=== PATIENT | male | born 1970 | race African-American/Black ===

== ENCOUNTER 2018-07-01 15:44 | Emergency (ER) | payer OTHER ==
[~2018-07-01] VITALS: Ht 170.2 cm; Wt 79.4 kg
[2018-07-01] MEDS ORDERED: IPRATRPIUM/ALBUTEROL 0.5/2.5MG 3 ML NEBU. NEB ONE (16:00)
--- NOTE | 2018-07-01 16:02 | PHYS DOC ---
Past Medical History Past Medical History: Asthma, Diabetes-Type II, Hypertension Additional Past Medical Histor: multiple sclerosis, Past Surgical History: Appendectomy Additional Past Surgical Histo: vesicostomy Alcohol Use: Occasionally Drug Use: None Adult General Chief Complaint Chief Complaint: URINE CATHETER PROBLEM HPI HPI Patient is a 47 year old male with history of MS currently wheelchair-bound, asthma, diabetes type 2, hypertension, who presents today for suprapubic catheter replacement. She states his catheter fell out " one hour and some change" . [facility], he states he has had the catheter for a long time due to incontinence from MS. He is also requesting a breathing treatment for his chronic asthma. Review of Systems Review of Systems Constitutional: Denies fever or chills [] Eyes: Denies change in visual acuity, redness, or eye pain [] HENT: Denies nasal congestion or sore throat [] Respiratory: Denies cough or shortness of breath [] Cardiovascular: No additional information not addressed in HPI [] GI: Denies abdominal pain, nausea, vomiting, bloody stools or diarrhea [] : Catheter replacement. Denies dysuria or hematuria [] Musculoskeletal: Denies back pain or joint pain [] Integument: Denies rash or skin lesions [] Neurologic: Denies headache, focal weakness or sensory changes [] All other systems were reviewed and found to be within normal limits, except as documented in this note. Current Medications Current Medications Current Medications Medications (Trade) Dose Ordered Sig/Kami Start Time Stop Time Status Last Admin Dose Admin Acetaminophen/ Hydrocodone Bitart (Lortab 5/325) 2 tab 1X ONCE 07/01/18 17:30 07/01/18 17:31 DC 07/01/18 17:31 2 TAB Albuterol/ Ipratropium (Duoneb) 3 ml 1X ONCE 07/01/18 16:00 07/01/18 16:01 DC 07/01/18 16:13 3 ML Allergies Allergies Allergies Coded Allergies Type Severity Reaction Last Updated Verified erythromycin base Allergy Unknown Shortness of breath 07/01/18 Yes oxycodone Allergy Unknown Hallucinations and paranoid 07/01/18 Yes Physical Exam Physical Exam Constitutional: Well developed, well nourished, no acute distress, non-toxic appearance. [] HENT: Normocephalic, atraumatic, bilateral external ears normal, oropharynx moist, no oral exudates, nose normal. [] Eyes: PERRLA, EOMI, conjunctiva normal, no discharge. [] Neck: Normal range of motion, no tenderness, supple, no stridor. [] Cardiovascular:Heart rate regular rhythm, no murmur [] Lungs & Thorax: Bilateral breath sounds clear to auscultation [] Abdomen: Bowel sounds normal, soft, no tenderness, no masses, no pulsatile masses. [] Male :open area on the suprapubic region where catheter was with redness, no signs of infection. No drainage. Skin: Warm, dry, no erythema, no rash. [] Back: No tenderness, no CVA tenderness. [] Extremities: No tenderness, no cyanosis, no clubbing, ROM intact, no edema. [] Neurologic: Alert and oriented X 3, normal motor function, normal sensory function, no focal deficits noted. [] Psychologic: Affect normal, judgement normal, mood normal. [] Current Patient Data Vital Signs Vital Signs Date Time Temp Pulse Resp B/P (MAP) Pulse Ox O2 Delivery O2 Flow Rate FiO2 07/01/18 17:32 90 18 135/63 (87) 07/01/18 17:31 Room Air 07/01/18 16:14 97 07/01/18 15:51 98.3 98.3 Lab Values Laboratory Tests Test 07/01/18 16:40 Urine Collection Type U cath Urine Color Yellow Urine Clarity Clear Urine pH 6.0 Urine Specific [place] 1.015 Urine Protein Negative mg/dL (NEG-TRACE) Urine Glucose (UA) Negative mg/dL (NEG) Urine Ketones (Stick) Negative mg/dL (NEG) Urine Blood Moderate (NEG) Urine Nitrite Positive (NEG) Urine Bilirubin Negative (NEG) Urine Urobilinogen Dipstick 0.2 mg/dL (0.2 mg/dL) Urine Leukocyte Esterase Large (NEG) Urine RBC 11-20 /HPF (0-2) Urine WBC 20-40 /HPF (0-4) Urine Squamous Epithelial Cells Occ /LPF Urine Bacteria Many /HPF (0-FEW) Urine Mucus Slight /LPF EKG EKG [] Radiology/Procedures Radiology/Procedures [] Course & Med Decision Making Course & Med Decision Making Pertinent Labs and Imaging studies reviewed. (See chart for details) This is a 47-year-old male patient presenting to the ED today for suprapubic catheter replacement, his catheter came out an hour and a few minutes ago. [facility]. He has MS and is wheelchair-bound. RN informs me patient's catheter has been out since this morning. [facility] with no success. Patient is also requesting a breathing treatment for his chronic asthma- breathing treatment was given in the ED. RN had placed a regular Harden catheter due to miscommunication. I successfully placed a Coude suprapubic catheter. At this point it is draining well. Urine positive for UTI. Discharged on Cipro. Follow-up with [facility] doctor at the [facility]. Dragon Disclaimer Dragon Disclaimer This electronic medical record was generated, in whole or in part, using a voice recognition dictation system. Departure Departure Impression: Primary Impression: Encounter for Harden catheter replacement Additional Impressions: Asthma Urinary tract infection Disposition: 01 HOME, SELF-CARE Condition: STABLE Referrals: NON,STAFF (PCP) Follow-up with the primary care doctor in 1-2 weeks Patient Instructions: Harden Catheter Care, Adult, Urinary Tract Infection Additional Instructions: We replaced your catheter in the emergency room. Please follow-up with your own doctor in the next 7 days. You also have urinary tract infection, complete your prescribed antibiotics. Scripts Ciprofloxacin Hcl (CIPRO) 500 Mg Tablet 1 TAB PO BID, #14 TAB Prov: MYCHAL GARCIA APRN 07/01/18 Problem Qualifiers Additional Impressions: Asthma Asthma severity: mild Asthma persistence: intermittent Asthma complication type: unspecified Qualified Codes: J45.20 - Mild intermittent asthma, uncomplicated Urinary tract infection Urinary tract infection type: catheter-associated UTI Indwelling urinary catheter type: indwelling urethral catheter Encounter type: initial encounter Qualified Codes: T83.511A - Infection and inflammatory reaction due to indwelling urethral catheter, initial encounter; N39.0 - Urinary tract infection, site not specified MYCHAL GARCIA APRN Jul 01, 2018 16:02
[2018-07-01 16:46] LABS: BILIRUBIN,URINE NEGATIVE (NEG); CLARITY,URINE CLEAR; COLOR,URINE YELLOW; NITRITE,URINE POSITIVE (NEG); PROTEIN,URINE NEGATIVE (NEG-TRACE); UROBILINOGEN,URINE 0.2 mg/dL (0.2 mg/dL)
[2018-07-01 16:55] LABS: BACTERIA,URINE MANY /HPF (0-FEW); SQUAMOUS EPITHELIAL CELL,UR OCC /LPF; WBC,URINE 20-40 /HPF (0-4)
[2018-07-01] MEDS ORDERED: HYDROcodone/APAP 5/325MG 1 TAB TABLET PO ONE (17:30)
[2018-07-01] MEDS ORDERED: CIPR500T94 PO (17:44)
[2018-07-01 18:18] VITALS: BP 138/62
== END 2018-07-01 19:53 | disposition home or self-care (01) ==
LOC: ER 15:44
DX: Z46.6 Encounter for fitting and adjustment of urinary device (principal); T83.511A Infection and inflammatory reaction due to indwelling urethral catheter, initial encounter; N39.0 Urinary tract infection, site not specified; J45.909 Unspecified asthma, uncomplicated; E11.9 Type 2 diabetes mellitus without complications; I10 Essential (primary) hypertension; Z90.49 Acquired absence of other specified parts of digestive tract; Z88.1 Allergy status to other antibiotic agents; Z88.5 Allergy status to narcotic agent
CPT/HCPCS: 51705; 81001; 87086; 94640; 99284; J7620

== ENCOUNTER 2019-01-24 15:12 | Inpatient (IN) | payer MEDICAID, OTHER ==
[~2019-01-24] VITALS: Ht 167.6 cm; Wt 74.8 kg
[~2019-01-24 15:12] MED LIST: CIPR500T94 PO
--- NOTE | 2019-01-24 16:11 | PHYS DOC ---
Past Medical History Past Medical History: Asthma, Diabetes-Type II, Hypertension Additional Past Medical Histor: multiple sclerosis, Past Surgical History: Appendectomy Additional Past Surgical Histo: vesicostomy Alcohol Use: Occasionally Drug Use: None Adult General Chief Complaint Chief Complaint: URINARY RETENTION [facility] HPI Patient is a 48 year old [male] who presents with [urinary leakage around his catheter. [facility], history of MS, has limited physical ability. Patient has had a suprapubic catheter placed on 01/07/19, has had some urinary leakage around it since it has been in. States he is having some tenderness around it and some lower abdominal discomfort ] Review of Systems Review of Systems Constitutional: Denies fever or chills [] Eyes: Denies change in visual acuity, redness, or eye pain [] HENT: Denies nasal congestion or sore throat [] Respiratory: Denies cough or shortness of breath [] Cardiovascular: No additional information not addressed in HPI [] GI: Reports some abdominal pain, denies nausea, vomiting, bloody stools or diarrhea [] : Reports urinary retention, urinary leakage around his catheter site. [] Musculoskeletal: Denies back pain or joint pain [] Integument: Denies rash or skin lesions [] Neurologic: Denies headache, focal weakness or sensory changes [] Endocrine: Denies polyuria or polydipsia [] All other systems were reviewed and found to be within normal limits, except as documented in this note. Current Medications Current Medications Allergies Allergies Allergies Coded Allergies Type Severity Reaction Last Updated Verified erythromycin base Allergy Severe Shortness of breath 07/08/18 Yes I S O L A T I O N *CONTACT* Allergy Unknown 07/08/18 Yes oxycodone Adverse Reaction Intermediate Hallucinations and paranoid 07/08/18 Yes Physical Exam Physical Exam Constitutional: Well developed, well nourished, no acute distress, non-toxic appearance. [] HENT: Normocephalic, atraumatic, bilateral external ears normal, oropharynx moist, no oral exudates, nose normal. [] Eyes: PERRLA, EOMI, conjunctiva normal, no discharge. [] Neck: Normal range of motion, no tenderness, supple, no stridor. [] Cardiovascular:Heart rate regular rhythm, no murmur [] Lungs & Thorax: Bilateral breath sounds clear to auscultation [] Abdomen: Bowel sounds normal, soft, minimal tenderness no masses, no pulsatile masses. Suprapubic catheter noted, appears urinary leakage around catheter site, some purulent discharge noted around catheter site as well.[] Skin: Warm, dry, no erythema, no rash. [] Back: No tenderness, no CVA tenderness. [] Extremities: No tenderness, no cyanosis, no clubbing, ROM intact, no edema. [] Neurologic: Alert and oriented X 3, normal motor function, normal sensory function, no focal deficits noted. [] Psychologic: Affect normal, judgement normal, mood normal. [] Current Patient Data Vital Signs Vital Signs Date Time Temp Pulse Resp B/P (MAP) Pulse Ox O2 Delivery O2 Flow Rate FiO2 01/24/19 17:30 91 16 100 01/24/19 15:15 98.2 133/71 (91) Room Air 98.2 Lab Values Laboratory Tests Test 01/24/19 16:00 01/24/19 17:15 White Blood Count 6.1 x10^3/uL (4.0-11.0) Red Blood Count 4.20 x10^6/uL (4.30-5.70) L Hemoglobin 13.1 g/dL (13.0-17.5) Hematocrit 38.4 % (39.0-53.0) L Mean Corpuscular Volume 91 fL (79-100) Mean Corpuscular Hemoglobin 31 pg (25-35) Mean Corpuscular Hemoglobin Concent 34 g/dL (31-37) Red Cell Distribution Width 18.9 % (11.5-14.5) H Platelet Count 350 x10^3/uL (140-400) Neutrophils (%) (Auto) 35 % (31-73) Lymphocytes (%) (Auto) 38 % (24-48) Monocytes (%) (Auto) 11 % (0-9) H Eosinophils (%) (Auto) 15 % (0-3) H Basophils (%) (Auto) 2 % (0-3) Neutrophils # (Auto) 2.1 x10^3/uL (1.8-7.7) Lymphocytes # (Auto) 2.3 x10^3/uL (1.0-4.8) Monocytes # (Auto) 0.7 x10^3/uL (0.0-1.1) Eosinophils # (Auto) 0.9 x10^3/uL (0.0-0.7) H Basophils # (Auto) 0.1 x10^3/uL (0.0-0.2) Lactic Acid Level 2.5 mmol/L (0.4-2.0) H Sodium Level 141 mmol/L (136-145) Potassium Level 4.2 mmol/L (3.5-5.1) Chloride Level 102 mmol/L (98-107) Carbon Dioxide Level 29 mmol/L (21-32) Anion Gap 10 (6-14) Blood Urea Nitrogen 11 mg/dL (8-26) Creatinine 0.8 mg/dL (0.7-1.3) Estimated GFR (Cockcroft-Gault) 125.4 BUN/Creatinine Ratio 14 (6-20) Glucose Level 81 mg/dL (70-99) Calcium Level 9.6 mg/dL (8.5-10.1) Total Bilirubin 0.2 mg/dL (0.2-1.0) Aspartate Amino Transferase (AST) 9 U/L (15-37) L Alanine Aminotransferase (ALT) 11 U/L (16-63) L Alkaline Phosphatase 119 U/L (46-116) H Total Protein 7.8 g/dL (6.4-8.2) Albumin 3.4 g/dL (3.4-5.0) Albumin/Globulin Ratio 0.8 (1.0-1.7) L Laboratory Tests 01/24/19 16:00 Laboratory Tests 01/24/19 17:15 EKG EKG [] Radiology/Procedures Radiology/Procedures [] Course & Med Decision Making Course & Med Decision Making Pertinent Labs and Imaging studies reviewed. (See chart for details) [Discussed lab findings with patient, with recommendation for admission patient in agreement. @[id number] Henry, agrees to accept patient for admission. Dragon Disclaimer Dragon Disclaimer This electronic medical record was generated, in whole or in part, using a voice recognition dictation system. Departure Departure Impression: Primary Impression: Lactic acidosis Additional Impression: Urinary catheter complication Disposition: ADMITTED INPATIENT Admitting Physician: CHRISTIANA Condition: STABLE Referrals: DARYA HOU MD (PCP) Problem Qualifiers Additional Impression: Urinary catheter complication Encounter type: initial encounter Qualified Codes: T83.9XXA - Unspecified complication of genitourinary prosthetic device, implant and graft, initial encounter DARLYN CEBALLOS APRN Jan 24, 2019 16:11
[2019-01-24 16:13] LABS: BASO # 0.1 x10^3/uL (0.0-0.2); BASO % 2 % (0-3); EOS # 0.9 x10^3/uL (0.0-0.7); EOS % 15 % (0-3); HEMATOCRIT 38.4 % (39.0-53.0); HEMOGLOBIN 13.1 g/dL (13.0-17.5); LYMPH # 2.3 x10^3/uL (1.0-4.8); LYMPH % 38 % (24-48); MEAN CORPUSCULAR HEMOGLOBIN 31 pg (25-35); MEAN CORPUSCULAR HGB CONC 34 g/dL (31-37); MEAN CORPUSCULAR VOLUME 91 fL (79-100); MONO # 0.7 x10^3/uL (0.0-1.1); MONO % 11 % (0-9); NEUT # 2.1 x10^3/uL (1.8-7.7); NEUT % 35 % (31-73); PLATELET COUNT 350 x10^3/uL (140-400); RED CELL DISTRIBUTION WIDTH 18.9 % (11.5-14.5); WHITE BLOOD COUNT 6.1 x10^3/uL (4.0-11.0)
[2019-01-24 17:39] LABS: CALCIUM 9.6 mg/dL (8.5-10.1); CREATININE 0.8 mg/dL (0.7-1.3); GFR 125.4; POTASSIUM 4.2 mmol/L (3.5-5.1)
[2019-01-24 17:43] LABS: ALBUMIN 3.4 g/dL (3.4-5.0); ALBUMIN/GLOBULIN RATIO 0.8 (1.0-1.7); TOTAL BILIRUBIN 0.2 mg/dL (0.2-1.0); TOTAL PROTEIN 7.8 g/dL (6.4-8.2)
[2019-01-24] MEDS ORDERED: ONDANSETRON PF 4 MG/2 ML VIAL. IV PRN (17:45)
[2019-01-24] MEDS ORDERED: IV NORMAL SALINE 1000ML BAG 1,000 ML IV ONE (18:00)
[2019-01-24 19:15] VITALS: BP 130/67
--- NOTE | 2019-01-24 19:15 | NUR ---
ADMISSION NOTE: Patient arrived to room 567 via ED gurney, accompanied by mother and ED staff. Patient was transferred to bed. Bed low, locked, call light within reach. Patient's clothes were removed and hospital gown placed. Patient complains of hunger at this time. Offered unit snacks, patient declined. Patient's mother is to bring him food from outside of the hospital. Provided process on restarting home medications. Patient has no questions at this time. Will continue to monitor.
[2019-01-24] MEDS ORDERED: AMLO10TA4 PO (20:44)
[2019-01-24] MEDS ORDERED: CEFD300C PO (20:44)
[2019-01-24] MEDS ORDERED: DIAZ5TAB4 PO (20:44)
[2019-01-24] MEDS ORDERED: HYDR-3135 PO (20:44)
[2019-01-24] MEDS ORDERED: GABA600T7 PO (20:44)
[2019-01-24] MEDS ORDERED: DICL100G18 TP (20:44)
[2019-01-24] MEDS ORDERED: MODA100T2 PO (20:44)
[2019-01-24] MEDS ORDERED: BACL20TA PO (20:44)
[2019-01-24] MEDS ORDERED: PROP50TA17 PO (20:44)
[2019-01-24] MEDS ORDERED: LISI-334 PO (20:44)
[2019-01-24] MEDS ORDERED: TRAM50TA PO (20:44)
[2019-01-24] MEDS ORDERED: METF10007 PO (20:44)
[2019-01-24] MEDS ORDERED: CHLO15MO2 PO (20:44)
[2019-01-24] MEDS ORDERED: ACET500T68 PO (20:44)
[2019-01-24] MEDS ORDERED: DULO60CA6 PO (20:44)
[2019-01-24] MEDS ORDERED: OXYC1TAB22 PO (20:44)
[2019-01-24] MEDS ORDERED: PHEN37.5 PO (20:44)
[2019-01-24] MEDS ORDERED: HYOS0.1265 SL (20:44)
[2019-01-24] MEDS ORDERED: ONDA4TAB11 PO (20:44)
[2019-01-24] MEDS ORDERED: ASCO500T3 PO (20:44)
[2019-01-24] MEDS ORDERED: CHOL10003 PO (20:44)
[2019-01-24] MEDS ORDERED: ASPI-630 PO (20:44)
[2019-01-24] MEDS ORDERED: INSU100V8 SQ (20:44)
[2019-01-24] MEDS ORDERED: ALBU2.5V8 INH (20:44)
[2019-01-24] MEDS ORDERED: HYOS0.1264 PO (20:44)
[2019-01-24] MEDS ORDERED: [UNRECOGNIZED DRUG - OTHER] INT CAT (20:44)
[2019-01-24] MEDS ORDERED: CLOP75TA PO (20:44)
[2019-01-24] MEDS ORDERED: DIAZ5TAB PO (20:44)
[2019-01-24] MEDS ORDERED: TIZA4TAB2 PO (20:44)
[2019-01-24] MEDS ORDERED: DIME240C PO (20:44)
[2019-01-24] MEDS ORDERED: METO50TA6 PO (20:44)
[2019-01-24] MEDS ORDERED: ACET325T9 PO (20:44)
[2019-01-24] MEDS ORDERED: MAGN2400 PO (20:44)
[2019-01-24] MEDS ORDERED: MIRA50TA PO (20:44)
[2019-01-24] MEDS ORDERED: METH1TAB20 PO (20:44)
[2019-01-24] MEDS ORDERED: traMADol 50 MG TABLET PO PRN (22:00)
[2019-01-24] MEDS ORDERED: IV DEXTROSE 5% 250 ML BAG. IV PRN (22:00)
[2019-01-24] MEDS ORDERED: ALBUTEROL SULFATE 2.5 MG/3 ML NEBU. INH PRN (22:00)
[2019-01-24] MEDS ORDERED: ACETAMINOPHEN 325 MG TABLET. PO PRN (22:00)
[2019-01-24] MEDS ORDERED: diazePAM 5 MG TABLET PO PRN (22:00)
[2019-01-24] MEDS ORDERED: HYDROcodone/APAP 10/325 1 TAB TABLET PO PRN (22:00)
[2019-01-24] MEDS ORDERED: DEXTROSE 50% 25 GM / 50ML DISP.SYRIN. IV PRN (22:00)
--- NOTE | 2019-01-24 22:00 | NUR ---
Patient's mother (Jennifer) expresses that patient and his (listed in the computer, Serena) are and that she (Jennifer) has DPOA paperwork for her son. Requested that patient's mother bring a copy with her when she comes back in the morning, so we can have it on file in the patient's chart. Patient's mother verbalizes understanding.
[2019-01-24 22:55] VITALS: BP 133/71
[2019-01-24] MEDS: tiZANidine 4 MG TABLET. PO SCH (22:58)
[2019-01-24] MEDS: METOPROLOL TART IMMED RELEASE 50 MG TABLET. PO SCH (22:59)
[2019-01-24] MEDS: CHLORHEXIDINE 0.12% 15 ML MOUTHWASH. SWSP SCH (23:00)
[2019-01-24] MEDS: DICLOFENAC SODIUM 1% TOPICAL GEL 100GM TUBE. TP SCH (23:00)
[2019-01-24] MEDS: INSULIN GLARGINE SYRINGE. SQ SCH (23:04)
[2019-01-25 03:00] VITALS: BP 149/78
[2019-01-25 07:00] VITALS: BP 142/74
--- NOTE | 2019-01-25 07:25 | NUR ---
Provided patient with education on importance of turning Q2H. Patient states he is not on special bed at facility, and they don't turn him every two hours. Educated patient on requesting/reminding to turn. Will pass along to day RN.
[2019-01-25] MEDS: INSULIN LISPRO 300 UNITS/3 ML VIAL. SQ SCH ×4 (07:30→21:00)
[2019-01-25] MEDS ORDERED: oxyCODONE/APAP 10/325 1 TAB TABLET PO PRN (08:30)
--- NOTE | 2019-01-25 08:30 | PDOC1 ---
History and Physical Date of Admission Date of Admission DATE: 01/25/19 TIME: :27 Identification/Chief Complaint Chief Complaint sp cath leaking Source Source: Patient History of Present Illness History of Present Illness Mr. Morocho, is a 48 year old admit with UTI, and leaking around his new suprapubic catheter. [facility], history of MS, has limited physical ability. Patient has had a suprapubic catheter placed on 01/07/19, has had some urinary leakage around it since it has been in. States he is having some tenderness around it and some lower abdominal discomfort He was healthy with asthma and HTN 5 years ago, then MS diagnosis, disabled for > 1 year, has been in a [facility]p, unable to walk, cannot use right arm, 1 year Past Medical History Cardiovascular: HTN Pulmonary: Asthma CENTRAL NERVOUS SYSTEM: Other (multiple sclerosis, severe, bedbound) GI: No pertinent hx Past Surgical History Past Surgical History: Other Family History Family History: No Significant Social History Smoke: No ALCOHOL: occassional Current Problem List Problem List Problems Medical Problems: (1) Lactic acidosis Status: Acute (2) Urinary catheter complication Status: Acute Current Medications Current Medications Current Medications Sodium Chloride 1,000 ml @ 1,000 mls/hr 1X ONCE IV Last administered on 01/24/19at 17:54; Start 01/24/19 at 18:00; Stop 01/24/19 at 18:59; Status DC Ondansetron HCl (Zofran) 4 mg PRN Q8HRS PRN IV NAUSEA/VOMITING; Start 01/24/19 at 17:45; Stop 01/25/19 at 17:44 Acetaminophen (Tylenol) 650 mg PRN Q4HRS PRN PO MILD PAIN / TEMP; Start 01/24/19 at 22:00 Albuterol Sulfate (Ventolin Neb Soln) 2.5 mg PRN Q4HRS PRN INH SHORTNESS OF BREATH Last administered on 01/25/19at 05:16; Start 01/24/19 at 22:00 Amlodipine Besylate (Norvasc) 10 mg DAILY PO ; Start 01/25/19 at 09:00 Ascorbic Acid (Vitamin C) 500 mg DAILY PO ; Start 01/25/19 at 09:00 Aspirin (Children'S Aspirin) 81 mg DAILYWBKFT PO ; Start 01/25/19 at 08:00 Chlorhexidine Gluconate (Peridex) 15 ml BID SWSP Last administered on 01/24/19at 23:11; Start 01/24/19 at 22:30 Vitamin D (Vitamin D3) 2,000 unit DAILY PO ; Start 01/25/19 at 09:00 Clopidogrel Bisulfate (Plavix) 75 mg DAILY PO ; Start 01/25/19 at 09:00 Diazepam (Valium) 5 mg PRN Q6HRS PRN PO ANXIETY / AGITATION Last administered on 01/24/19at 23:11; Start 01/24/19 at 22:00 Diclofenac Sodium (Voltaren) 2 sharita QID TP Last administered on 01/24/19at 23:11; Start 01/24/19 at 22:30 Acetaminophen/ Hydrocodone Bitart (Lortab 10/325) 1 tab PRN Q12HR PRN PO PAIN; Start 01/24/19 at 22:00 Insulin Glargine (Lantus Syringe) 8 unit QHS SQ Last administered on 01/24/19at 23:11; Start 01/24/19 at 22:30 Lisinopril (Prinivil) 20 mg DAILY PO ; Start 01/25/19 at 09:00 Metoprolol Tartrate (Lopressor) 50 mg BID PO Last administered on 01/24/19at 23:11; Start 01/24/19 at 22:30 Propylthiouracil (Ptu) 50 mg TID PO ; Start 01/25/19 at 09:00 Tizanidine HCl (Zanaflex) 4 mg TID PO Last administered on 01/24/19at 23:11; Start 01/24/19 at 22:30 Tramadol HCl (Ultram) 50 mg PRN Q6HRS PRN PO PAIN Last administered on 01/24/19at 23:11; Start 01/24/19 at 22:00 Insulin Human Lispro (HumaLOG) 0-5 UNITS TIDACHC SQ ; Start 01/25/19 at 07:30 Dextrose (Dextrose 50%-Water Syringe) 12.5 gm PRN Q15MIN PRN IV SEE COMMENTS; Start 01/24/19 at 22:00 Dextrose 250 ml PRN Q15MIN PRN IV SEE COMMENTS; Start 01/24/19 at 22:00 Active Scripts Active Reported Ondansetron Hcl 4 Mg Tablet 1 Tab PO PRN Q6HRS Tizanidine Hcl 4 Mg Tablet 1 Tab PO TID Vitamin D3 (Cholecalciferol (Vitamin D3)) 1,000 Unit Tablet 2 Tab PO DAILY Valium (Diazepam) 5 Mg Tablet 5 Mg PO PRN Q6HRS PRN Tramadol Hcl 50 Mg Tablet 50 Mg PO PRN Q6HRS PRN Tecfidera (Dimethyl Fumarate) 240 Mg Capsule.dr 240 Mg PO BID Propylthiouracil 50 Mg Tablet 50 Mg PO TID Proair Hfa Inhaler (Albuterol Sulfate) 8.5 Gm Hfa.aer.ad 2 Puff INH PRN Q4HRS PRN Clopidogrel (Clopidogrel Bisulfate) 75 Mg Tablet 1 Tab PO DAILY Phentermine Hcl 37.5 Mg Tablet 1 Tab PO DAILY Peridex (Chlorhexidine Gluconate) 15 Ml Mouthwash 15 Ml PO BID Percocet 10-325 Mg Tablet (Oxycodone/Acetaminophen) 1 Each Tablet 1 Tab PO PRN Q8HRS PRN Norvasc (Amlodipine Besylate) 10 Mg Tablet 10 Mg PO DAILY Gatzke 10-325 Tablet (Acetaminophen/Hydrocodone Bitart) 1 Each Tablet 1 Tab PO PRN Q12HR PRN [Neomycin-PolymB ] 180 Ml INT CAT DAILY Myrbetriq (Mirabegron) 50 Mg Tab.er.24h 50 Mg PO DAILY Modafinil 100 Mg Tablet 100 Mg PO QHS Milk Of Magnesia (Magnesium Hydroxide) 2,400 Mg/10 Ml Oral.susp 2,400 Mg PO PRN DAILY PRN Methenamine Hippurate 1 Gm Tablet 1 Gm PO BID Metformin Hcl 1,000 Mg Tablet 1,000 Mg PO BIDWMEALS Metoprolol Tartrate 50 Mg Tablet 1 Tab PO BID Lisinopril 20 Mg Tablet 1 Tab PO DAILY Lantus (Insulin Glargine,Hum.rec.anlog) 100 Unit/1 Ml Vial 8 Unit SQ QHS Levsin-Sl (Hyoscyamine Sulfate) 0.125 Mg Tab.subl 0.125 Mg SL PRN Q4HRS PRN Levsin (Hyoscyamine Sulfate) 0.125 Mg Tablet 1 Tab PO BID Gabapentin 600 Mg Tablet 600 Mg PO TID Voltaren (Diclofenac Sodium) 100 Gm Gel..gram. 2 Gm TP QID Diazepam 5 Mg Tablet 5 Mg PO QID Cymbalta (Duloxetine Hcl) 60 Mg Capsule.dr 1 Cap PO DAILY Cefdinir 300 Mg Capsule 1 Cap PO BID 7 Days Baclofen 20 Mg Tablet 20 Mg PO QID Aspirin 81 Mg Tab.chew 1 Tab PO DAILY Ascorbic Acid 500 Mg Tablet 500 Mg PO DAILY Acetaminophen 500 Mg Tablet 1 Tab PO TID Tylenol (Acetaminophen) 325 Mg Tablet 650 Mg PO PRN Q4HRS PRN Allergies Allergies: Coded Allergies: erythromycin base (Verified Allergy, Severe, Shortness of breath, 07/08/18) I S O L A T I O N *CONTACT* (Verified Allergy, Unknown, 07/08/18) (R) PSA oxycodone (Verified Adverse Reaction, Intermediate, Hallucinations and paranoid, 07/08/18) ROS General: YES: Fatigue, Malaise; No: Chills, Night Sweats, Appetite, Other PSYCHOLOGICAL ROS: YES: Sleep disturbances; No: Anxiety, Behavioral Disorder, Concentration difficultie, Decreased libido, Depression, Disorientation, Hallucinations, Hostility, Irritablity, Memory difficulties, Mood Swings, Obsessive thoughts, Other Eyes: No Blurry vision, No Decreased vision, No Double vision, No Dry eyes, No Excessive tearing, No Eye Pain, No Itchy Eyes, No Loss of vision, No Photopho tianna, No Scotomata, No Uses contacts, No Uses glasses, No Other HEENT: YES: Heacaches Genitourinary: No Dysuria, No Frequency, No Incontinence, No Hematuria, No Retention, No Discharge, No Urgency, No Pain, No Flank Pain, No Other, No , No , No , No , No , No , No Musculoskeletal: Yes Gait Disturbance, Yes Muscular Weakness, Yes Pain In:; No Joint Pain, No Joint Stiffness, No Joint Swelling, No Muscle Pain Neurological: Yes Bowel/Bladder ControlChng, Yes Gait Disturbance, Yes Impaired Coord/balance, Yes Numbness/Tingling, Yes Weakness; No Behavorial Changes, No Confusion, No Dizziness, No Headaches, No Memory Loss, No Seizures, No Speech Problems, No Tremors, No Visual Changes, No Other Skin: No Dry Skin, No Eczema, No Hair Changes, No Lumps, No Mole Changes, No Mottling, No Nail Changes, No Pruritus, No Rash, No Skin Lesion Changes, No Other, No Acne Physical Exam General: Alert, Cooperative, mild distress HEENT: ANGELES, EOMI, Mucous membr. moist/pink Lungs: Clear to auscultation, Normal air movement Heart: S1S2 Abdomen: Normal bowel sounds, Soft Rectal Exam: not examined Extremities: No clubbing, No cyanosis, No edema, Normal pulses Skin: No rashes, No breakdown, No significant lesion Neuro: Normal speech, Other (flaccid right, cannot move right arm) Psych/Mental Status: Mood NL (a little flat affect) Vitals Vitals Vital Signs Date Time Temp Pulse Resp B/P (MAP) Pulse Ox O2 Delivery O2 Flow Rate FiO2 01/25/19 07:00 98.3 87 16 142/74 (96) 100 Room Air 98.3 Labs Labs Laboratory Tests Test 01/24/19 16:00 01/24/19 17:15 01/24/19 19:45 01/24/19 22:30 White Blood Count 6.1 x10^3/uL (4.0-11.0) Red Blood Count 4.20 x10^6/uL (4.30-5.70) Hemoglobin 13.1 g/dL (13.0-17.5) Hematocrit 38.4 % (39.0-53.0) Mean Corpuscular Volume 91 fL (79-100) Mean Corpuscular Hemoglobin 31 pg (25-35) Mean Corpuscular Hemoglobin Concent 34 g/dL (31-37) Red Cell Distribution Width 18.9 % (11.5-14.5) Platelet Count 350 x10^3/uL (140-400) Neutrophils (%) (Auto) 35 % (31-73) Lymphocytes (%) (Auto) 38 % (24-48) Monocytes (%) (Auto) 11 % (0-9) Eosinophils (%) (Auto) 15 % (0-3) Basophils (%) (Auto) 2 % (0-3) Neutrophils # (Auto) 2.1 x10^3/uL (1.8-7.7) Lymphocytes # (Auto) 2.3 x10^3/uL (1.0-4.8) Monocytes # (Auto) 0.7 x10^3/uL (0.0-1.1) Eosinophils # (Auto) 0.9 x10^3/uL (0.0-0.7) Basophils # (Auto) 0.1 x10^3/uL (0.0-0.2) Lactic Acid Level 2.5 mmol/L (0.4-2.0) 1.8 mmol/L (0.4-2.0) Sodium Level 141 mmol/L (136-145) Potassium Level 4.2 mmol/L (3.5-5.1) Chloride Level 102 mmol/L (98-107) Carbon Dioxide Level 29 mmol/L (21-32) Anion Gap 10 (6-14) Blood Urea Nitrogen 11 mg/dL (8-26) Creatinine 0.8 mg/dL (0.7-1.3) Estimated GFR (Cockcroft-Gault) 125.4 BUN/Creatinine Ratio 14 (6-20) Glucose Level 81 mg/dL (70-99) Calcium Level 9.6 mg/dL (8.5-10.1) Total Bilirubin 0.2 mg/dL (0.2-1.0) Aspartate Amino Transf (AST/SGOT) 9 U/L (15-37) Alanine Aminotransferase (ALT/SGPT) 11 U/L (16-63) Alkaline Phosphatase 119 U/L (46-116) Total Protein 7.8 g/dL (6.4-8.2) Albumin 3.4 g/dL (3.4-5.0) Albumin/Globulin Ratio 0.8 (1.0-1.7) Glucose (Fingerstick) 137 mg/dL (70-99) Test 01/25/19 07:40 Glucose (Fingerstick) 134 mg/dL (70-99) Laboratory Tests Test 01/24/19 16:00 01/24/19 17:15 01/24/19 19:45 01/24/19 22:30 White Blood Count 6.1 x10^3/uL (4.0-11.0) Red Blood Count 4.20 x10^6/uL (4.30-5.70) Hemoglobin 13.1 g/dL (13.0-17.5) Hematocrit 38.4 % (39.0-53.0) Mean Corpuscular Volume 91 fL (79-100) Mean Corpuscular Hemoglobin 31 pg (25-35) Mean Corpuscular Hemoglobin Concent 34 g/dL (31-37) Red Cell Distribution Width 18.9 % (11.5-14.5) Platelet Count 350 x10^3/uL (140-400) Neutrophils (%) (Auto) 35 % (31-73) Lymphocytes (%) (Auto) 38 % (24-48) Monocytes (%) (Auto) 11 % (0-9) Eosinophils (%) (Auto) 15 % (0-3) Basophils (%) (Auto) 2 % (0-3) Neutrophils # (Auto) 2.1 x10^3/uL (1.8-7.7) Lymphocytes # (Auto) 2.3 x10^3/uL (1.0-4.8) Monocytes # (Auto) 0.7 x10^3/uL (0.0-1.1) Eosinophils # (Auto) 0.9 x10^3/uL (0.0-0.7) Basophils # (Auto) 0.1 x10^3/uL (0.0-0.2) Lactic Acid Level 2.5 mmol/L (0.4-2.0) 1.8 mmol/L (0.4-2.0) Sodium Level 141 mmol/L (136-145) Potassium Level 4.2 mmol/L (3.5-5.1) Chloride Level 102 mmol/L (98-107) Carbon Dioxide Level 29 mmol/L (21-32) Anion Gap 10 (6-14) Blood Urea Nitrogen 11 mg/dL (8-26) Creatinine 0.8 mg/dL (0.7-1.3) Estimated GFR (Cockcroft-Gault) 125.4 BUN/Creatinine Ratio 14 (6-20) Glucose Level 81 mg/dL (70-99) Calcium Level 9.6 mg/dL (8.5-10.1) Total Bilirubin 0.2 mg/dL (0.2-1.0) Aspartate Amino Transf (AST/SGOT) 9 U/L (15-37) Alanine Aminotransferase (ALT/SGPT) 11 U/L (16-63) Alkaline Phosphatase 119 U/L (46-116) Total Protein 7.8 g/dL (6.4-8.2) Albumin 3.4 g/dL (3.4-5.0) Albumin/Globulin Ratio 0.8 (1.0-1.7) Glucose (Fingerstick) 137 mg/dL (70-99) Test 01/25/19 07:40 Glucose (Fingerstick) 134 mg/dL (70-99) VTE Prophylaxis Ordered VTE Prophylaxis Devices: Yes VTE Pharmacological Prophylaxi: No Assessment/Plan Assessment/Plan UTI, complicated tachycardia, no sirs leaking suprapubic cath, placed 2 weeks ago at , has been changed already, was too small MS, muscle pain and spasm hemiparesis bedbound htn dm2 KAROLINA MACIEL MD Jan 25, 2019 08:30
[2019-01-25] MEDS ORDERED: ONDANSETRON ODT 4 MG TAB.RAPDIS. PO PRN (08:45)
[2019-01-25] MEDS ORDERED: MAGNESIUM HYDROXIDE 2,400 MG/30 ML ORAL.SUSP. PO PRN (09:00)
[2019-01-25] MEDS ORDERED: METHENAMINE HIPPURATE 1 GM PO SCH (09:00)
[2019-01-25] MEDS ORDERED: NON FORMULARY ITEM (Phentermine Hcl 1 TAB) PO SCH (09:00)
[2019-01-25] MEDS: CHLORHEXIDINE 0.12% 15 ML MOUTHWASH. SWSP SCH ×2 (09:00→19:38)
[2019-01-25] MEDS: NON FORMULARY ITEM (Dimethyl Fumarate (Tecfidera) 240 MG) PO SCH ×2 (09:00→21:00)
[2019-01-25] MEDS ORDERED: HYOSCYAMINE 0.125 MG TAB.RAPDIS PO PRN (09:00)
--- NOTE | 2019-01-25 10:06 | NUR ---
IP: Pt has a hx of (R) PSA, carbapenum resistant, in urine on 07/01/18. Pt to be in contact precautions until there are 2 negative urine cultures 7 days apart without antibiotics.
--- NOTE | 2019-01-25 10:16 | NUR ---
SW following pt for dc planning. Chart reviewed and discussed with RN. SW confirmed with Keyla pt is LTC resident at [facility] of , , fax: [phone]. SW will continue to follow.
[2019-01-25] MEDS: METOPROLOL TART IMMED RELEASE 50 MG TABLET. PO SCH (10:19)
[2019-01-25] MEDS: ASCORBIC ACID 500 MG TABLET PO SCH (10:19)
[2019-01-25] MEDS: DICLOFENAC SODIUM 1% TOPICAL GEL 100GM TUBE. TP SCH ×4 (10:19→21:00)
[2019-01-25] MEDS: PROPYLTHIOURACIL 50 MG PO SCH ×3 (10:19→19:38)
[2019-01-25] MEDS: CLOPIDOGREL BISULFATE 75 MG TABLET PO SCH (10:19)
[2019-01-25] MEDS: tiZANidine 4 MG TABLET. PO SCH ×3 (10:19→21:00)
[2019-01-25] MEDS: DULoxetine HCL 30 MG CAPSULE.DR PO SCH (10:20)
[2019-01-25] MEDS: GABAPENTIN 300 MG CAPSULE. PO SCH ×3 (10:20→19:43)
[2019-01-25] MEDS: ASPIRIN CHEWABLE 81 MG TABLET. PO SCH (10:20)
[2019-01-25] MEDS: OXYBUTYNIN CHLORIDE 5 MG TABLET PO SCH ×3 (10:20→19:43)
[2019-01-25] MEDS: CEFDINIR 300 MG CAPSULE PO SCH ×2 (10:20→19:43)
[2019-01-25] MEDS: HYOSCYAMINE 0.125 MG TAB.RAPDIS PO SCH ×2 (10:20→19:39)
[2019-01-25] MEDS: LISINOPRIL 20 MG TABLET PO SCH (10:20)
[2019-01-25] MEDS: CHOLECALCIFEROL (VITAMIN D3) 1,000 UNIT TABLET PO SCH (10:21)
[2019-01-25] MEDS: diazePAM 5 MG TABLET PO SCH ×4 (10:21→21:00)
[2019-01-25] MEDS: ACETAMINOPHEN 500 MG TABLET PO SCH ×3 (10:21→19:44)
[2019-01-25] MEDS: amLODIPine BESYLATE 10 MG TABLET PO SCH (10:21)
[2019-01-25] MEDS: CYCLOBENZAPRINE 10 MG TABLET. PO SCH ×3 (10:21→21:00)
--- NOTE | 2019-01-25 10:21 | PDOC2 ---
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 He has had this SP tubing for four years and normally gets this changed out every two weeks. His attending RN complains of "sluggish drainage" from SP site and "gunk" around SP site, is wondering if it should be changed out as was last changed on 01/07/19.Wound care has already been consulted but has not seen the patient yet; they are scheduled to come this afternoon. Pt denies feeling an increase in spasms to bladder, although he admits being on antispasm medication for a long time now. Past Medical History Cardiovascular: HTN Pulmonary: Asthma CENTRAL NERVOUS SYSTEM: Other (multiple sclerosis, severe, bedbound) GI: No pertinent hx Past Surgical History Past Surgical History: Other Family History Family History: No Significant Social History No ALCOHOL: occassional Current Problem List Problems: (1) Neurogenic bladder (2) Urinary catheter complication Current Medications Current Medications Current Medications Acetaminophen (Tylenol) 500 mg TID PO ; Start 01/25/19 at 09:00 Acetaminophen (Tylenol) 650 mg PRN Q4HRS PRN PO MILD PAIN / TEMP; Start 01/24/19 at 22:00 Acetaminophen/ Hydrocodone Bitart (Lortab 10/325) 1 tab PRN Q12HR PRN PO PAIN; Start 01/24/19 at 22:00 Albuterol Sulfate (Ventolin Neb Soln) 2.5 mg PRN Q4HRS PRN INH SHORTNESS OF BREATH Last administered on 01/25/19at 05:16; Start 01/24/19 at 22:00 Amlodipine Besylate (Norvasc) 10 mg DAILY PO ; Start 01/25/19 at 09:00 Ascorbic Acid (Vitamin C) 500 mg DAILY PO ; Start 01/25/19 at 09:00 Aspirin (Children'S Aspirin) 81 mg DAILYWBKFT PO ; Start 01/25/19 at 08:00 Cefdinir (Omnicef) 300 mg BID PO ; Start 01/25/19 at 09:00 Chlorhexidine Gluconate (Peridex) 15 ml BID SWSP Last administered on 01/24/19at 23:11; Start 01/24/19 at 22:30 Clopidogrel Bisulfate (Plavix) 75 mg DAILY PO ; Start 01/25/19 at 09:00 Cyclobenzaprine HCl (Flexeril) 10 mg TID PO ; Start 01/25/19 at 09:00 Dextrose 250 ml PRN Q15MIN PRN IV SEE COMMENTS; Start 01/24/19 at 22:00 Dextrose (Dextrose 50%-Water Syringe) 12.5 gm PRN Q15MIN PRN IV SEE COMMENTS; Start 01/24/19 at 22:00 Diazepam (Valium) 5 mg PRN Q6HRS PRN PO ANXIETY / AGITATION Last administered on 01/24/19at 23:11; Start 01/24/19 at 22:00; Stop 01/25/19 at 08:42; Status DC Diazepam (Valium) 5 mg QID PO ; Start 01/25/19 at 09:00 Diclofenac Sodium (Voltaren) 2 sharita QID TP Last administered on 01/24/19at 23:11; Start 01/24/19 at 22:30 Duloxetine HCl (Cymbalta) 60 mg DAILY PO ; Start 01/25/19 at 09:00 Gabapentin (Neurontin) 600 mg TID PO ; Start 01/25/19 at 09:00 Hyoscyamine (Anaspaz) 0.125 mg BID PO ; Start 01/25/19 at 09:00 Hyoscyamine (Anaspaz) 0.125 mg PRN Q4HRS PRN PO STOMACH CRAMPING; Start 01/25/19 at 09:00 Insulin Glargine (Lantus Syringe) 8 unit QHS SQ Last administered on 01/24/19at 23:11; Start 01/24/19 at 22:30 Insulin Human Lispro (HumaLOG) 0-5 UNITS TIDACHC SQ ; Start 01/25/19 at 07:30 Lisinopril (Prinivil) 20 mg DAILY PO ; Start 01/25/19 at 09:00 Magnesium Hydroxide (Milk Of Magnesia) 2,400 mg PRN DAILY PRN PO CONSTIPATION; Start 01/25/19 at 09:00 Metformin HCl (Glucophage) 1,000 mg BIDWMEALS PO ; Start 01/25/19 at 17:00 Metoprolol Tartrate (Lopressor) 50 mg BID PO Last administered on 01/24/19at 23:11; Start 01/24/19 at 22:30 Non-Formulary Medication (Dimethyl Fumarate (Tecfidera)) 240 mg BID PO ; Start 01/25/19 at 09:00; Status UNV Non-Formulary Medication (Methenamine Hippurate ) 1 gm BID PO ; Start 01/25/19 at 09:00; Status UNV Non-Formulary Medication (Phentermine Hcl ) 1 tab DAILY PO ; Start 01/25/19 at 09:00; Status UNV Ondansetron HCl (Zofran Odt) 4 mg PRN Q6HRS PRN PO NAUSEA/VOMITING; Start 01/25/19 at 08:45 Ondansetron HCl (Zofran) 4 mg PRN Q8HRS PRN IV NAUSEA/VOMITING; Start 01/24/19 at 17:45; Stop 01/25/19 at 17:44 Oxybutynin Chloride (Ditropan) 5 mg [id number] PO ; Start 01/25/19 at 09:05 Oxycodone/ Acetaminophen (Percocet 10/325) 1 tab PRN Q8HRS PRN PO PAIN; Start 01/25/19 at 08:30 Propylthiouracil (Ptu) 50 mg TID PO ; Start 01/25/19 at 09:00 Sodium Chloride 1,000 ml @ 1,000 mls/hr 1X ONCE IV Last administered on 01/24/19at 17:54; Start 01/24/19 at 18:00; Stop 01/24/19 at 18:59; Status DC Tizanidine HCl (Zanaflex) 4 mg TID PO Last administered on 01/24/19at 23:11; Start 01/24/19 at 22:30 Tramadol HCl (Ultram) 50 mg PRN Q6HRS PRN PO PAIN Last administered on 01/24/19at 23:11; Start 01/24/19 at 22:00 Vitamin D (Vitamin D3) 2,000 unit DAILY PO ; Start 01/25/19 at 09:00 Allergies Allergies: Coded Allergies: erythromycin base (Verified Allergy, Severe, Shortness of breath, 07/08/18) peach (Verified Allergy, Intermediate, Rash, 01/25/19) strawberry (Verified Allergy, Intermediate, Rash, 01/25/19) I S O L A T I O N *CONTACT* (Verified Allergy, Unknown, 07/08/18) (R) PSA oxycodone (Verified Adverse Reaction, Intermediate, Hallucinations and paranoid, 07/08/18) ROS Review Of Systems: CONSTITUTIONAL: No fever or chills EYES: No recent changes SKIN: + SP site concern CARDIOVASCULAR: No chest pain, syncope, palpitations, or edema RESPIRATORY: No SOB or cough GASTROINTESTINAL: No nausea, vomiting or abdominal pain NEUROLOGICAL: No headaches or weakness ENDOCRINE: No cold or heat intolerance GENITOURINARY: + SP catheter in place, not actively draining. Lots of mucus MUSCULOSKELETAL: No back pain or joint pain LYMPHATICS: No enlarged lymph nodes PSYCHIATRIC: No anxiety or depression Physical Exam Physical Exam: General: Pleasant, no acute distress, well groomed Eyes: conjunctiva anicteric, eyes full range of motion ENT: moist oral mucosa, normal dentition Neck: Trachea midline, no masses Respiratory: unlabored breathing, not using accessory muscles, Abdomen: nontender, nondistended, sp site with wound at SP entrance, small amount of thick drainage noted, cleansed away easily with chorhexidine. Old SP tubing was removed and new 22 mal[place]ian Harden inserted into SP site with one a ttempt. Light pink urine return with scant clots noted(less than pea sized). Urine was actively draining into SP catheter when LAB DIRECTOR left. Skin: no rashes or skin lesions on visualized skin Psych: normal mood, affect. Alert and oriented x 3. Vitals VITALS Vital Signs Date Time Temp Pulse Resp B/P (MAP) Pulse Ox O2 Delivery O2 Flow Rate FiO2 01/25/19 08:00 Room Air 01/25/19 07:00 98.3 87 16 142/74 (96) 100 98.3 Labs Labs Laboratory Tests Test 01/24/19 16:00 01/24/19 17:15 01/24/19 19:45 01/24/19 22:30 White Blood Count 6.1 x10^3/uL (4.0-11.0) Red Blood Count 4.20 x10^6/uL (4.30-5.70) Hemoglobin 13.1 g/dL (13.0-17.5) Hematocrit 38.4 % (39.0-53.0) Mean Corpuscular Volume 91 fL (79-100) Mean Corpuscular Hemoglobin 31 pg (25-35) Mean Corpuscular Hemoglobin Concent 34 g/dL (31-37) Red Cell Distribution Width 18.9 % (11.5-14.5) Platelet Count 350 x10^3/uL (140-400) Neutrophils (%) (Auto) 35 % (31-73) Lymphocytes (%) (Auto) 38 % (24-48) Monocytes (%) (Auto) 11 % (0-9) Eosinophils (%) (Auto) 15 % (0-3) Basophils (%) (Auto) 2 % (0-3) Neutrophils # (Auto) 2.1 x10^3/uL (1.8-7.7) Lymphocytes # (Auto) 2.3 x10^3/uL (1.0-4.8) Monocytes # (Auto) 0.7 x10^3/uL (0.0-1.1) Eosinophils # (Auto) 0.9 x10^3/uL (0.0-0.7) Basophils # (Auto) 0.1 x10^3/uL (0.0-0.2) Lactic Acid Level 2.5 mmol/L (0.4-2.0) 1.8 mmol/L (0.4-2.0) Sodium Level 141 mmol/L (136-145) Potassium Level 4.2 mmol/L (3.5-5.1) Chloride Level 102 mmol/L (98-107) Carbon Dioxide Level 29 mmol/L (21-32) Anion Gap 10 (6-14) Blood Urea Nitrogen 11 mg/dL (8-26) Creatinine 0.8 mg/dL (0.7-1.3) Estimated GFR (Cockcroft-Gault) 125.4 BUN/Creatinine Ratio 14 (6-20) Glucose Level 81 mg/dL (70-99) Calcium Level 9.6 mg/dL (8.5-10.1) Total Bilirubin 0.2 mg/dL (0.2-1.0) Aspartate Amino Transf (AST/SGOT) 9 U/L (15-37) Alanine Aminotransferase (ALT/SGPT) 11 U/L (16-63) Alkaline Phosphatase 119 U/L (46-116) Total Protein 7.8 g/dL (6.4-8.2) Albumin 3.4 g/dL (3.4-5.0) Albumin/Globulin Ratio 0.8 (1.0-1.7) Glucose (Fingerstick) 137 mg/dL (70-99) Test 01/25/19 07:40 Glucose (Fingerstick) 134 mg/dL (70-99) Laboratory Tests Test 01/24/19 16:00 01/24/19 17:15 01/24/19 19:45 01/24/19 22:30 White Blood Count 6.1 x10^3/uL (4.0-11.0) Red Blood Count 4.20 x10^6/uL (4.30-5.70) Hemoglobin 13.1 g/dL (13.0-17.5) Hematocrit 38.4 % (39.0-53.0) Mean Corpuscular Volume 91 fL (79-100) Mean Corpuscular Hemoglobin 31 pg (25-35) Mean Corpuscular Hemoglobin Concent 34 g/dL (31-37) Red Cell Distribution Width 18.9 % (11.5-14.5) Platelet Count 350 x10^3/uL (140-400) Neutrophils (%) (Auto) 35 % (31-73) Lymphocytes (%) (Auto) 38 % (24-48) Monocytes (%) (Auto) 11 % (0-9) Eosinophils (%) (Auto) 15 % (0-3) Basophils (%) (Auto) 2 % (0-3) Neutrophils # (Auto) 2.1 x10^3/uL (1.8-7.7) Lymphocytes # (Auto) 2.3 x10^3/uL (1.0-4.8) Monocytes # (Auto) 0.7 x10^3/uL (0.0-1.1) Eosinophils # (Auto) 0.9 x10^3/uL (0.0-0.7) Basophils # (Auto) 0.1 x10^3/uL (0.0-0.2) Lactic Acid Level 2.5 mmol/L (0.4-2.0) 1.8 mmol/L (0.4-2.0) Sodium Level 141 mmol/L (136-145) Potassium Level 4.2 mmol/L (3.5-5.1) Chloride Level 102 mmol/L (98-107) Carbon Dioxide Level 29 mmol/L (21-32) Anion Gap 10 (6-14) Blood Urea Nitrogen 11 mg/dL (8-26) Creatinine 0.8 mg/dL (0.7-1.3) Estimated GFR (Cockcroft-Gault) 125.4 BUN/Creatinine Ratio 14 (6-20) Glucose Level 81 mg/dL (70-99) Calcium Level 9.6 mg/dL (8.5-10.1) Total Bilirubin 0.2 mg/dL (0.2-1.0) Aspartate Amino Transf (AST/SGOT) 9 U/L (15-37) Alanine Aminotransferase (ALT/SGPT) 11 U/L (16-63) Alkaline Phosphatase 119 U/L (46-116) Total Protein 7.8 g/dL (6.4-8.2) Albumin 3.4 g/dL (3.4-5.0) Albumin/Globulin Ratio 0.8 (1.0-1.7) Glucose (Fingerstick) 137 mg/dL (70-99) Test 01/25/19 07:40 Glucose (Fingerstick) 134 mg/dL (70-99) Assessment/Plan Assessment/Plan Abdomen: nontender, nondistended, sp site with wound at SP entrance, small amount of thick drainage noted, cleansed away easily with chlorhexidine. Old SP tubing was removed and new 22 mal[place]ian Harden inserted into SP site with one attempt. Light pink urine return with scant clots noted(less than pea sized). Urine was actively draining into SP catheter when LAB DIRECTOR left. Nursing to continue to monitor SP catheter/maintain. Agree with wound care consult. Orders given to flush PRN: If not draining, RN May flush with the following method: using 60 cc irrigation syringe, instill 30 cc of NS into catheter hub and withdraw, may repeat up to three times for a total of 180 cc of NS into the bladder; if no return noted after this, discontinue procedure and call Urology. Pt already on TID Ditropan, continue. Discussed above with attending RN. Dr. Almeida to round on patient later today or tomorrow DARLYN ALMEIDA MD 01/25/19 1838: UROLOGY CONSULT Assessment/Plan Assessment/Plan Agree with assessment and plan. If continued leakage then recommend referral to [facility] for video urodynamic assessment. EYAL DUMONT APRN Jan 25, 2019 10:21 DARLYN ALMEIDA MD Jan 25, 2019 18:38
[2019-01-25 11:00] VITALS: BP 134/78
--- NOTE | 2019-01-25 11:09 | PDOC ---
Infectious Disease Note Vital Sign Vital Signs Vital Signs Date Time Temp Pulse Resp B/P (MAP) Pulse Ox O2 Delivery O2 Flow Rate FiO2 01/25/19 10:22 87 142/74 01/25/19 08:00 Room Air 01/25/19 07:00 98.3 16 100 98.3 Labs Lab Laboratory Tests Test 01/24/19 16:00 01/24/19 17:15 01/24/19 19:45 01/24/19 22:30 White Blood Count 6.1 x10^3/uL (4.0-11.0) Red Blood Count 4.20 x10^6/uL (4.30-5.70) Hemoglobin 13.1 g/dL (13.0-17.5) Hematocrit 38.4 % (39.0-53.0) Mean Corpuscular Volume 91 fL (79-100) Mean Corpuscular Hemoglobin 31 pg (25-35) Mean Corpuscular Hemoglobin Concent 34 g/dL (31-37) Red Cell Distribution Width 18.9 % (11.5-14.5) Platelet Count 350 x10^3/uL (140-400) Neutrophils (%) (Auto) 35 % (31-73) Lymphocytes (%) (Auto) 38 % (24-48) Monocytes (%) (Auto) 11 % (0-9) Eosinophils (%) (Auto) 15 % (0-3) Basophils (%) (Auto) 2 % (0-3) Neutrophils # (Auto) 2.1 x10^3/uL (1.8-7.7) Lymphocytes # (Auto) 2.3 x10^3/uL (1.0-4.8) Monocytes # (Auto) 0.7 x10^3/uL (0.0-1.1) Eosinophils # (Auto) 0.9 x10^3/uL (0.0-0.7) Basophils # (Auto) 0.1 x10^3/uL (0.0-0.2) Lactic Acid Level 2.5 mmol/L (0.4-2.0) 1.8 mmol/L (0.4-2.0) Sodium Level 141 mmol/L (136-145) Potassium Level 4.2 mmol/L (3.5-5.1) Chloride Level 102 mmol/L (98-107) Carbon Dioxide Level 29 mmol/L (21-32) Anion Gap 10 (6-14) Blood Urea Nitrogen 11 mg/dL (8-26) Creatinine 0.8 mg/dL (0.7-1.3) Estimated GFR (Cockcroft-Gault) 125.4 BUN/Creatinine Ratio 14 (6-20) Glucose Level 81 mg/dL (70-99) Calcium Level 9.6 mg/dL (8.5-10.1) Total Bilirubin 0.2 mg/dL (0.2-1.0) Aspartate Amino Transf (AST/SGOT) 9 U/L (15-37) Alanine Aminotransferase (ALT/SGPT) 11 U/L (16-63) Alkaline Phosphatase 119 U/L (46-116) Total Protein 7.8 g/dL (6.4-8.2) Albumin 3.4 g/dL (3.4-5.0) Albumin/Globulin Ratio 0.8 (1.0-1.7) Glucose (Fingerstick) 137 mg/dL (70-99) Test 01/25/19 07:40 Glucose (Fingerstick) 134 mg/dL (70-99) Objective Assessment SPC malfunction - s/p change 01/25 Reported UTI - Prior to admit on Cefdinir - prior Bactrim Emycin allergy - ? SOA doesn't remember taking Azithromycin MS Plan Plan of Care Clinically looks well Cont Cefdinir F/u labs and cults Thank you # [id number] RICARDA NATION MD Jan 25, 2019 11:09
[2019-01-25 13:10] LABS: BILIRUBIN,URINE NEGATIVE (NEG); CLARITY,URINE CLEAR; COLOR,URINE YELLOW; NITRITE,URINE NEGATIVE (NEG); PROTEIN,URINE 30 mg/dL (NEG-TRACE)
[2019-01-25 13:27] LABS: SQUAMOUS EPITHELIAL CELL,UR OCC /LPF
[2019-01-25 13:28] LABS: BACTERIA,URINE 0 /HPF (0-FEW)
--- NOTE | 2019-01-25 14:22 | NUR ---
Wound Care Pt seen for WC consult re: non-healing suprapubic site. Area assessed, skin intact, no redness or breakdown, but with a small area of hypergranulation at opening. Area cleaned, redressed with an absorbant foam dressing, change every 2-3 days. Pt incontinent of stool at this time, micha area cleaned, no other wounds noted on full skin inspection. Pt repositioned and heels floated.
[2019-01-25 15:00] VITALS: BP 108/63
[2019-01-25] MEDS: metFORMIN 500 MG TABLET PO SCH (17:14)
[2019-01-25 19:00] VITALS: BP 104/58
[2019-01-25] MEDS: INSULIN GLARGINE SYRINGE. SQ SCH (21:02)
[2019-01-25 23:00] VITALS: BP 118/66
--- NOTE | 2019-01-25 23:53 | CONS ---
DATE OF CONSULTATION: 01/25/2019 LOCATION: The patient is in room 567. REQUESTING PHYSICIAN: Dr. Perez. REASON FOR CONSULTATION: Complicated UTI. HISTORY OF PRESENT ILLNESS: The patient is a 48-year-old gentleman with history of multiple sclerosis, has diabetes and a suprapubic catheter. Normally goes to , recently has a suprapubic catheter changed from 16-20. He states several days ago, he was not feeling too well, had urine collected at [facility], initially was placed on Bactrim, but then changed to cefdinir approximately 01/23 per the report. There are no culture results, but he states he had been feeling well; however, he was sent to [facility] after having difficulties with his suprapubic catheter. He was seen by Urology, underwent a suprapubic catheter changed today and apparently upsized to a 22-[place]. There is report of scant clots. Urine was actively drained and had some thickened drainage noted around the tube initially. Currently, he is lying in bed. He denies any fevers or chills or sweats. He has no gross headaches. No gross shortness of air. Denies any nausea or vomiting. PAST MEDICAL HISTORY: Positive for previous urinary tract infection with a Proteus resistant to ampicillin, Unasyn, Cipro, gentamicin, imipenem, nitrofurantoin, Zosyn, tetracycline, Bactrim and intermediate to tobramycin. Also had a Pseudomonas that was resistant to quinolones and imipenem and ticarcillin, sensitive to piperacillin and ceftazidime. History of multiple sclerosis, type 2 diabetes, also weakness, hypersomnia, hyperlipidemia, major depression, hypertension, peripheral vascular disease, neuromuscular dysfunction of the bladder. REVIEW OF SYSTEMS: Otherwise negative except as mentioned above. ALLERGIES: LISTED ERYTHROMYCIN BASE, thinks he became short of air. He is uncertain if he has ever had azithromycin. OXYCODONE IS ALSO LISTED. SOCIAL HISTORY: longterm resident. No alcohol. FAMILY HISTORY: Noncontributory. CURRENT MEDICATIONS: Include Tylenol, Ventolin, Norvasc, vitamin C, Children's aspirin, cefdinir, Peridex, Plavix, Flexeril, Valium, Cymbalta, Neurontin, Anaspaz, insulin, Prinivil, metoprolol, Glucophage, Zanaflex, Ultram, Tecfidera. PHYSICAL EXAMINATION: VITAL SIGNS: Afebrile since his presentation, temperature 98.3, pulse 87, respirations 16, blood pressure 142/74, satting 100% on room air. CONSTITUTIONAL: He is pleasant, cooperative. He is in no acute distress. HEENT: Pupils have some questionable early cataracts. Oral cavity, pharynx was clear. NECK: Supple, no JVD. LUNGS: Clear to auscultation. HEART: S1, S2. ABDOMEN: Mildly protuberant, soft, nontender. Suprapubic catheter in place. There are mild wounds associated with it. GENITOURINARY: Urine is clean. SKIN: Without signs of generalized rash. PSYCHIATRIC: Affect is appropriate. NEUROLOGIC: He is alert and answers questions appropriately. LABORATORY DATA: White count 6.1, hemoglobin 13.1, platelets of 350, neutrophils 35, lymphs of 38. Creatinine 0.8. Normal liver function study tests. There is no urine collected. IMPRESSION: 1. Suprapubic catheter malfunction, status post change today on . 2. Reported urinary tract infection prior to admission, on cefdinir on 01/23. He states Bactrim was started previously. 3. E-MYCIN ALLERGY, questionable shortness of air. Does not remember taking azithromycin. 4. Multiple sclerosis. RECOMMENDATIONS: Clinically, he looks well. For now, continue cefdinir, follow up labs and cultures. Thanks for the patient's care. Should you have any questions, please do not hesitate to contact me. RICARDA NATION MD DR: UNA/charis JOB#: [id number] / [id number]
[2019-01-26] MEDS: LACTOBACILLUS RHAMNOSUS GG 1 CAPSULE. PO SCH ×2 (00:10→09:51)
[2019-01-26] MEDS: METOPROLOL TART IMMED RELEASE 50 MG TABLET. PO SCH ×2 (00:11→09:52)
[2019-01-26 03:00] VITALS: BP 122/68
[2019-01-26 07:00] VITALS: BP 125/69
[2019-01-26] MEDS: INSULIN LISPRO 300 UNITS/3 ML VIAL. SQ SCH ×3 (07:30→16:30)
[2019-01-26] MEDS: NON FORMULARY ITEM (Dimethyl Fumarate (Tecfidera) 240 MG) PO SCH (09:00)
--- NOTE | 2019-01-26 09:41 | PDOC ---
EYAL DUMONT D[employer] SET UP OPERATOR 01/26/19 0941: SUBJECTIVE Subjective Pt doing better today, no more leaking around tube, no pain from it. OBJECTIVE Objective Physical Exam: General appearance: Alert and Oriented Head: Normocephalic, without obvious abnormality Eyes: conjunctivae/corneas clear. PERRL, EOM's intact. Fundi benign Lungs: Regular respirations, non labored breathing Abdomen: soft, non-tender. +SP tube in place draining clear yellow urine, No noticeable leakage around site. No masses, no organomegaly Vital Signs Vital Signs Date Time Temp Pulse Resp B/P (MAP) Pulse Ox O2 Delivery O2 Flow Rate FiO2 01/26/19 07:00 97.7 83 18 125/69 (87) 94 Room Air 97.7 01/26/19 03:00 97.7 84 14 122/68 (86) 100 Room Air 97.7 01/26/19 00:11 88 118/66 01/25/19 23:00 97.8 88 14 118/66 (83) Room Air 97.8 01/25/19 20:00 Room Air 01/25/19 19:00 97.8 74 16 104/58 (73) 96 Room Air 97.8 01/25/19 15:00 97.9 81 17 108/63 (78) 100 Room Air 97.9 01/25/19 12:46 Room Air 01/25/19 11:49 Room Air 01/25/19 11:00 97.7 87 16 134/78 (96) 100 Room Air 97.7 01/25/19 10:22 87 142/74 01/25/19 10:22 87 142/74 01/25/19 10:21 87 142/74 I & O Intake and Output 01/26/19 07:00 Intake Total 540 ml Output Total 1235 ml Balance -695 ml Intake Oral 540 ml Output Urine Total 1235 ml PHYSICAL EXAM Physical Exam Physical Exam: General appearance: Alert and Oriented Head: Normocephalic, without obvious abnormality Eyes: conjunctivae/corneas clear. PERRL, EOM's intact. Fundi benign Lungs: Regular respirations, non labored breathing Abdomen: soft, non-tender. +SP tube in place draining clear yellow urine, No noticeable leakage around site. No masses, no organomegaly ASSESSMENT/PLAN Assessment/Plan SP tube functioning well, no more leakage with upsize to 22 FR Recommend he stay at this size and continue q 2 week changes. Next change due 02/08/19 Continue Ditropan TID for spasms Continue SP site care per wound care team. Follow up at Urology , as we do not have lift capabilities at [facility] office, but will check on patient peripherally while in house. From a Urology perspective, could D/C to SNF LTC facility at any time. COMMENT Lab Laboratory Tests Test 01/25/19 11:14 01/25/19 12:40 01/25/19 17:11 01/25/19 21:00 Glucose (Fingerstick) 136 mg/dL (70-99) 138 mg/dL (70-99) 148 mg/dL (70-99) Urine Color Yellow Urine Clarity Clear Urine pH 8.0 Urine Specific [place] 1.015 Urine Protein 30 mg/dL (NEG-TRACE) Urine Glucose (UA) Negative mg/dL (NEG) Urine Ketones (Stick) Negative mg/dL (NEG) Urine Blood Large (NEG) Urine Nitrite Negative (NEG) Urine Bilirubin Negative (NEG) Urine Urobilinogen Dipstick 1.0 mg/dL (0.2 mg/dL) Urine Leukocyte Esterase Moderate (NEG) Urine RBC 11-20 /HPF (0-2) Urine WBC 1-4 /HPF (0-4) Urine Squamous Epithelial Cells Occ /LPF Urine Bacteria 0 /HPF (0-FEW) Urine Mucus Slight /LPF Test 01/26/19 07:05 Glucose (Fingerstick) 85 mg/dL (70-99) DARLYN ALMEIDA MD 01/28/19 1605: ASSESSMENT/PLAN Assessment/Plan agree with assessment and plan. EYAL DUMONT APRN Jan 26, 2019 09:41 DARLYN ALMEIDA MD Jan 28, 2019 16:05
[2019-01-26] MEDS: ASPIRIN CHEWABLE 81 MG TABLET. PO SCH (09:49)
[2019-01-26] MEDS: CEFDINIR 300 MG CAPSULE PO SCH (09:50)
[2019-01-26] MEDS: PROPYLTHIOURACIL 50 MG PO SCH ×2 (09:50→15:18)
[2019-01-26] MEDS: CHOLECALCIFEROL (VITAMIN D3) 1,000 UNIT TABLET PO SCH (09:50)
[2019-01-26] MEDS: GABAPENTIN 300 MG CAPSULE. PO SCH ×2 (09:50→15:18)
[2019-01-26] MEDS: metFORMIN 500 MG TABLET PO SCH ×2 (09:50→18:29)
[2019-01-26] MEDS: OXYBUTYNIN CHLORIDE 5 MG TABLET PO SCH ×2 (09:50→15:17)
[2019-01-26] MEDS: HYOSCYAMINE 0.125 MG TAB.RAPDIS PO SCH (09:51)
[2019-01-26] MEDS: CLOPIDOGREL BISULFATE 75 MG TABLET PO SCH (09:51)
[2019-01-26] MEDS: CYCLOBENZAPRINE 10 MG TABLET. PO SCH ×2 (09:51→15:18)
[2019-01-26] MEDS: tiZANidine 4 MG TABLET. PO SCH ×2 (09:51→15:18)
[2019-01-26] MEDS: ASCORBIC ACID 500 MG TABLET PO SCH (09:51)
[2019-01-26] MEDS: DULoxetine HCL 30 MG CAPSULE.DR PO SCH (09:51)
[2019-01-26] MEDS: diazePAM 5 MG TABLET PO SCH ×3 (09:51→18:29)
[2019-01-26] MEDS: LISINOPRIL 20 MG TABLET PO SCH (09:52)
[2019-01-26] MEDS: CHLORHEXIDINE 0.12% 15 ML MOUTHWASH. SWSP SCH (09:53)
[2019-01-26] MEDS: amLODIPine BESYLATE 10 MG TABLET PO SCH (09:53)
[2019-01-26] MEDS: ACETAMINOPHEN 500 MG TABLET PO SCH ×2 (09:53→15:18)
[2019-01-26] MEDS: DICLOFENAC SODIUM 1% TOPICAL GEL 100GM TUBE. TP SCH ×3 (09:54→18:30)
[2019-01-26 10:03] LABS: BASO # 0.1 x10^3/uL (0.0-0.2); BASO % 1 % (0-3); EOS # 0.8 x10^3/uL (0.0-0.7); EOS % 12 % (0-3); HEMATOCRIT 38.1 % (39.0-53.0); HEMOGLOBIN 12.3 g/dL (13.0-17.5); LYMPH # 2.3 x10^3/uL (1.0-4.8); LYMPH % 34 % (24-48); MEAN CORPUSCULAR HEMOGLOBIN 30 pg (25-35); MEAN CORPUSCULAR HGB CONC 32 g/dL (31-37); MEAN CORPUSCULAR VOLUME 93 fL (79-100); MONO # 0.7 x10^3/uL (0.0-1.1); MONO % 10 % (0-9); NEUT % 43 % (31-73); PLATELET COUNT 323 x10^3/uL (140-400); RED BLOOD COUNT 4.11 x10^6/uL (4.30-5.70); RED CELL DISTRIBUTION WIDTH 19.3 % (11.5-14.5); WHITE BLOOD COUNT 6.8 x10^3/uL (4.0-11.0)
[2019-01-26 10:08] LABS: ALBUMIN 3.2 g/dL (3.4-5.0); ALBUMIN/GLOBULIN RATIO 0.8 (1.0-1.7); CALCIUM 9.5 mg/dL (8.5-10.1); CREATININE 0.6 mg/dL (0.7-1.3); GFR 174.7; POTASSIUM 4.1 mmol/L (3.5-5.1); TOTAL BILIRUBIN 0.2 mg/dL (0.2-1.0); TOTAL PROTEIN 7.3 g/dL (6.4-8.2)
[2019-01-26 10:46] VITALS: BP 128/72
--- NOTE | 2019-01-26 10:51 | PDOC ---
Infectious Disease Note Subjective Subjective Doing ok. tolerating new SPC. Has some chronic shoulder discomfort ROS ROS o/w neg Vital Sign Vital Signs Vital Signs Date Time Temp Pulse Resp B/P (MAP) Pulse Ox O2 Delivery O2 Flow Rate FiO2 01/26/19 10:46 97.9 80 18 128/72 (90) 94 Room Air 97.9 Physical Exam PHYSICAL EXAM CONSTITUTIONAL: He is pleasant, cooperative. He is in no acute distress. HEENT: Pupils have some questionable early cataracts. Oral cavity, pharynx was clear. NECK: Supple, no JVD. LUNGS: Clear to auscultation. HEART: S1, S2. ABDOMEN: Mildly protuberant, soft, nontender. Suprapubic catheter in place. There are mild wounds associated with it. GENITOURINARY: Urine is clean. SKIN: Without signs of generalized rash. PSYCHIATRIC: Affect is appropriate. NEUROLOGIC: He is alert and answers questions appropriately. Labs Lab Laboratory Tests Test 01/25/19 11:14 01/25/19 12:40 01/25/19 17:11 01/25/19 21:00 Glucose (Fingerstick) 136 mg/dL (70-99) 138 mg/dL (70-99) 148 mg/dL (70-99) Urine Color Yellow Urine Clarity Clear Urine pH 8.0 Urine Specific [place] 1.015 Urine Protein 30 mg/dL (NEG-TRACE) Urine Glucose (UA) Negative mg/dL (NEG) Urine Ketones (Stick) Negative mg/dL (NEG) Urine Blood Large (NEG) Urine Nitrite Negative (NEG) Urine Bilirubin Negative (NEG) Urine Urobilinogen Dipstick 1.0 mg/dL (0.2 mg/dL) Urine Leukocyte Esterase Moderate (NEG) Urine RBC 11-20 /HPF (0-2) Urine WBC 1-4 /HPF (0-4) Urine Squamous Epithelial Cells Occ /LPF Urine Bacteria 0 /HPF (0-FEW) Urine Mucus Slight /LPF Test 01/26/19 07:05 01/26/19 09:20 Glucose (Fingerstick) 85 mg/dL (70-99) White Blood Count 6.8 x10^3/uL (4.0-11.0) Red Blood Count 4.11 x10^6/uL (4.30-5.70) Hemoglobin 12.3 g/dL (13.0-17.5) Hematocrit 38.1 % (39.0-53.0) Mean Corpuscular Volume 93 fL (79-100) Mean Corpuscular Hemoglobin 30 pg (25-35) Mean Corpuscular Hemoglobin Concent 32 g/dL (31-37) Red Cell Distribution Width 19.3 % (11.5-14.5) Platelet Count 323 x10^3/uL (140-400) Neutrophils (%) (Auto) 43 % (31-73) Lymphocytes (%) (Auto) 34 % (24-48) Monocytes (%) (Auto) 10 % (0-9) Eosinophils (%) (Auto) 12 % (0-3) Basophils (%) (Auto) 1 % (0-3) Neutrophils # (Auto) 3.0 x10^3/uL (1.8-7.7) Lymphocytes # (Auto) 2.3 x10^3/uL (1.0-4.8) Monocytes # (Auto) 0.7 x10^3/uL (0.0-1.1) Eosinophils # (Auto) 0.8 x10^3/uL (0.0-0.7) Basophils # (Auto) 0.1 x10^3/uL (0.0-0.2) Sodium Level 144 mmol/L (136-145) Potassium Level 4.1 mmol/L (3.5-5.1) Chloride Level 105 mmol/L (98-107) Carbon Dioxide Level 29 mmol/L (21-32) Anion Gap 10 (6-14) Blood Urea Nitrogen 14 mg/dL (8-26) Creatinine 0.6 mg/dL (0.7-1.3) Estimated GFR (Cockcroft-Gault) 174.7 BUN/Creatinine Ratio 23 (6-20) Glucose Level 103 mg/dL (70-99) Calcium Level 9.5 mg/dL (8.5-10.1) Total Bilirubin 0.2 mg/dL (0.2-1.0) Aspartate Amino Transf (AST/SGOT) 10 U/L (15-37) Alanine Aminotransferase (ALT/SGPT) 12 U/L (16-63) Alkaline Phosphatase 122 U/L (46-116) Total Protein 7.3 g/dL (6.4-8.2) Albumin 3.2 g/dL (3.4-5.0) Albumin/Globulin Ratio 0.8 (1.0-1.7) Objective Assessment SPC malfunction - s/p change 01/25 Reported UTI - Prior to admit on Cefdinir - prior Bactrim Emycin allergy - ? SOA doesn't remember taking Azithromycin MS Plan Plan of Care Clinically looks well - UA clean Cont Cefdinir treat for 7 more days ID to sign off RICARDA NATION MD Jan 26, 2019 10:51
[2019-01-26] MEDS ORDERED: CEFD300C PO (12:11)
[2019-01-26] MEDS ORDERED: OXYC1TAB22 PO (12:11)
--- NOTE | 2019-01-26 12:14 | PDOC3 ---
Discharge Summary Visit Information Date of Admission: Jan 24, 2019 Date of Discharge: Jan 26, 2019 Admitting Diagnosis: SP cath leaking Final Diagnosis UTI, complicated tachycardia, no sirs leaking suprapubic cath, placed 2 weeks ago at , has been changed already, was too small MS, nearing end-stage muscle pain and spasm hemiparesis bedbound htn dm2 Problems Medical Problems: (1) Bedbound Status: Chronic (2) DM2 (diabetes mellitus, type 2) Status: Chronic (3) Hemiparesis Status: Chronic (4) HTN (hypertension) Status: Chronic (5) Lactic acidosis Status: Acute (6) MS (multiple sclerosis) Status: Chronic (7) Urinary catheter complication Status: Acute Brief Hospital Course Allergies Allergies Coded Allergies Type Severity Reaction Last Updated Verified erythromycin base Allergy Severe Shortness of breath 07/08/18 Yes peach Allergy Intermediate Rash 01/25/19 Yes strawberry Allergy Intermediate Rash 01/25/19 Yes I S O L A T I O N *CONTACT* Allergy Unknown 07/08/18 Yes oxycodone Adverse Reaction Intermediate Hallucinations and paranoid 07/08/18 Yes Vital Signs Vital Signs Date Time Temp Pulse Resp B/P (MAP) Pulse Ox O2 Delivery O2 Flow Rate FiO2 01/26/19 10:46 97.9 80 18 128/72 (90) 94 Room Air 97.9 Lab Results Laboratory Tests Test 01/24/19 16:00 01/24/19 17:15 01/24/19 19:45 01/24/19 22:30 White Blood Count 6.1 x10^3/uL (4.0-11.0) Red Blood Count 4.20 x10^6/uL (4.30-5.70) Hemoglobin 13.1 g/dL (13.0-17.5) Hematocrit 38.4 % (39.0-53.0) Mean Corpuscular Volume 91 fL (79-100) Mean Corpuscular Hemoglobin 31 pg (25-35) Mean Corpuscular Hemoglobin Concent 34 g/dL (31-37) Red Cell Distribution Width 18.9 % (11.5-14.5) Platelet Count 350 x10^3/uL (140-400) Neutrophils (%) (Auto) 35 % (31-73) Lymphocytes (%) (Auto) 38 % (24-48) Monocytes (%) (Auto) 11 % (0-9) Eosinophils (%) (Auto) 15 % (0-3) Basophils (%) (Auto) 2 % (0-3) Neutrophils # (Auto) 2.1 x10^3/uL (1.8-7.7) Lymphocytes # (Auto) 2.3 x10^3/uL (1.0-4.8) Monocytes # (Auto) 0.7 x10^3/uL (0.0-1.1) Eosinophils # (Auto) 0.9 x10^3/uL (0.0-0.7) Basophils # (Auto) 0.1 x10^3/uL (0.0-0.2) Lactic Acid Level 2.5 mmol/L (0.4-2.0) 1.8 mmol/L (0.4-2.0) Sodium Level 141 mmol/L (136-145) Potassium Level 4.2 mmol/L (3.5-5.1) Chloride Level 102 mmol/L (98-107) Carbon Dioxide Level 29 mmol/L (21-32) Anion Gap 10 (6-14) Blood Urea Nitrogen 11 mg/dL (8-26) Creatinine 0.8 mg/dL (0.7-1.3) Estimated GFR (Cockcroft-Gault) 125.4 BUN/Creatinine Ratio 14 (6-20) Glucose Level 81 mg/dL (70-99) Calcium Level 9.6 mg/dL (8.5-10.1) Total Bilirubin 0.2 mg/dL (0.2-1.0) Aspartate Amino Transf (AST/SGOT) 9 U/L (15-37) Alanine Aminotransferase (ALT/SGPT) 11 U/L (16-63) Alkaline Phosphatase 119 U/L (46-116) Total Protein 7.8 g/dL (6.4-8.2) Albumin 3.4 g/dL (3.4-5.0) Albumin/Globulin Ratio 0.8 (1.0-1.7) Glucose (Fingerstick) 137 mg/dL (70-99) Test 01/25/19 07:40 01/25/19 11:14 01/25/19 12:40 01/25/19 17:11 Glucose (Fingerstick) 134 mg/dL (70-99) 136 mg/dL (70-99) 138 mg/dL (70-99) Urine Color Yellow Urine Clarity Clear Urine pH 8.0 Urine Specific [place] 1.015 Urine Protein 30 mg/dL (NEG-TRACE) Urine Glucose (UA) Negative mg/dL (NEG) Urine Ketones (Stick) Negative mg/dL (NEG) Urine Blood Large (NEG) Urine Nitrite Negative (NEG) Urine Bilirubin Negative (NEG) Urine Urobilinogen Dipstick 1.0 mg/dL (0.2 mg/dL) Urine Leukocyte Esterase Moderate (NEG) Urine RBC 11-20 /HPF (0-2) Urine WBC 1-4 /HPF (0-4) Urine Squamous Epithelial Cells Occ /LPF Urine Bacteria 0 /HPF (0-FEW) Urine Mucus Slight /LPF Test 01/25/19 21:00 01/26/19 07:05 01/26/19 09:20 01/26/19 11:20 Glucose (Fingerstick) 148 mg/dL (70-99) 85 mg/dL (70-99) 131 mg/dL (70-99) White Blood Count 6.8 x10^3/uL (4.0-11.0) Red Blood Count 4.11 x10^6/uL (4.30-5.70) Hemoglobin 12.3 g/dL (13.0-17.5) Hematocrit 38.1 % (39.0-53.0) Mean Corpuscular Volume 93 fL (79-100) Mean Corpuscular Hemoglobin 30 pg (25-35) Mean Corpuscular Hemoglobin Concent 32 g/dL (31-37) Red Cell Distribution Width 19.3 % (11.5-14.5) Platelet Count 323 x10^3/uL (140-400) Neutrophils (%) (Auto) 43 % (31-73) Lymphocytes (%) (Auto) 34 % (24-48) Monocytes (%) (Auto) 10 % (0-9) Eosinophils (%) (Auto) 12 % (0-3) Basophils (%) (Auto) 1 % (0-3) Neutrophils # (Auto) 3.0 x10^3/uL (1.8-7.7) Lymphocytes # (Auto) 2.3 x10^3/uL (1.0-4.8) Monocytes # (Auto) 0.7 x10^3/uL (0.0-1.1) Eosinophils # (Auto) 0.8 x10^3/uL (0.0-0.7) Basophils # (Auto) 0.1 x10^3/uL (0.0-0.2) Sodium Level 144 mmol/L (136-145) Potassium Level 4.1 mmol/L (3.5-5.1) Chloride Level 105 mmol/L (98-107) Carbon Dioxide Level 29 mmol/L (21-32) Anion Gap 10 (6-14) Blood Urea Nitrogen 14 mg/dL (8-26) Creatinine 0.6 mg/dL (0.7-1.3) Estimated GFR (Cockcroft-Gault) 174.7 BUN/Creatinine Ratio 23 (6-20) Glucose Level 103 mg/dL (70-99) Calcium Level 9.5 mg/dL (8.5-10.1) Total Bilirubin 0.2 mg/dL (0.2-1.0) Aspartate Amino Transf (AST/SGOT) 10 U/L (15-37) Alanine Aminotransferase (ALT/SGPT) 12 U/L (16-63) Alkaline Phosphatase 122 U/L (46-116) Total Protein 7.3 g/dL (6.4-8.2) Albumin 3.2 g/dL (3.4-5.0) Albumin/Globulin Ratio 0.8 (1.0-1.7) Laboratory Tests Test 01/25/19 12:40 01/25/19 17:11 01/25/19 21:00 01/26/19 07:05 Urine Color Yellow Urine Clarity Clear Urine pH 8.0 Urine Specific [place] 1.015 Urine Protein 30 mg/dL (NEG-TRACE) Urine Glucose (UA) Negative mg/dL (NEG) Urine Ketones (Stick) Negative mg/dL (NEG) Urine Blood Large (NEG) Urine Nitrite Negative (NEG) Urine Bilirubin Negative (NEG) Urine Urobilinogen Dipstick 1.0 mg/dL (0.2 mg/dL) Urine Leukocyte Esterase Moderate (NEG) Urine RBC 11-20 /HPF (0-2) Urine WBC 1-4 /HPF (0-4) Urine Squamous Epithelial Cells Occ /LPF Urine Bacteria 0 /HPF (0-FEW) Urine Mucus Slight /LPF Glucose (Fingerstick) 138 mg/dL (70-99) 148 mg/dL (70-99) 85 mg/dL (70-99) Test 01/26/19 09:20 01/26/19 11:20 White Blood Count 6.8 x10^3/uL (4.0-11.0) Red Blood Count 4.11 x10^6/uL (4.30-5.70) Hemoglobin 12.3 g/dL (13.0-17.5) Hematocrit 38.1 % (39.0-53.0) Mean Corpuscular Volume 93 fL (79-100) Mean Corpuscular Hemoglobin 30 pg (25-35) Mean Corpuscular Hemoglobin Concent 32 g/dL (31-37) Red Cell Distribution Width 19.3 % (11.5-14.5) Platelet Count 323 x10^3/uL (140-400) Neutrophils (%) (Auto) 43 % (31-73) Lymphocytes (%) (Auto) 34 % (24-48) Monocytes (%) (Auto) 10 % (0-9) Eosinophils (%) (Auto) 12 % (0-3) Basophils (%) (Auto) 1 % (0-3) Neutrophils # (Auto) 3.0 x10^3/uL (1.8-7.7) Lymphocytes # (Auto) 2.3 x10^3/uL (1.0-4.8) Monocytes # (Auto) 0.7 x10^3/uL (0.0-1.1) Eosinophils # (Auto) 0.8 x10^3/uL (0.0-0.7) Basophils # (Auto) 0.1 x10^3/uL (0.0-0.2) Sodium Level 144 mmol/L (136-145) Potassium Level 4.1 mmol/L (3.5-5.1) Chloride Level 105 mmol/L (98-107) Carbon Dioxide Level 29 mmol/L (21-32) Anion Gap 10 (6-14) Blood Urea Nitrogen 14 mg/dL (8-26) Creatinine 0.6 mg/dL (0.7-1.3) Estimated GFR (Cockcroft-Gault) 174.7 BUN/Creatinine Ratio 23 (6-20) Glucose Level 103 mg/dL (70-99) Calcium Level 9.5 mg/dL (8.5-10.1) Total Bilirubin 0.2 mg/dL (0.2-1.0) Aspartate Amino Transf (AST/SGOT) 10 U/L (15-37) Alanine Aminotransferase (ALT/SGPT) 12 U/L (16-63) Alkaline Phosphatase 122 U/L (46-116) Total Protein 7.3 g/dL (6.4-8.2) Albumin 3.2 g/dL (3.4-5.0) Albumin/Globulin Ratio 0.8 (1.0-1.7) Glucose (Fingerstick) 131 mg/dL (70-99) Brief Hospital Course Mr. Richards is a 48 old admit with pain and leaking from suprapubic cath on 01.26 SP tube functioning well, no more leakage with upsize to 22 FR [facility] Recommend he stay at this size and continue q 2 week changes. Next change due 02/08/19 Continue Ditropan TID for spasms cont wound care, Discharge Information Condition at Discharge: Improved Follow Up: Weeks Disposition/Orders: D/C to Another Facility ([facility]) Scheduled Amlodipine Besylate (Norvasc) 10 Mg Tablet, 10 MG PO DAILY for HTN, (Reported) Entered as Reported by: LUIS CERDA on 01/24/192043 Last Action: Continued on 01/24/192156 by DAJUAN MADDEN MD Ascorbic Acid (Ascorbic Acid) 500 Mg Tablet, 500 MG PO DAILY for immune support, (Reported) Entered as Reported by: LUIS CERDA on 01/24/192043 Last Action: Continued on 01/24/192156 by DAJUAN MADDEN MD Aspirin (Aspirin) 81 Mg Tab.chew, 1 TAB PO DAILY for ppx, #30 Ref 3 (Reported) Entered as Reported by: LUIS CERDA on 01/24/192043 Last Action: Continued on 01/24/192156 by DAJUAN MADDEN MD Baclofen (Baclofen) 20 Mg Tablet, 20 MG PO QID for MUSCLE RELAXER, #30 Ref 0 (Reported) Entered as Reported by: LUIS CERDA on 01/24/192043 Last Action: Converted on 01/25/19828 by KAROLINA MACIEL Cefdinir (Cefdinir) 300 Mg Capsule, 1 CAP PO BID for uti for 7 Days, #14 Prescribed by: KAROLINA MACIEL on 01/26/19 1211 Chlorhexidine Gluconate (Peridex) 15 Ml Mouthwash, 15 ML PO BID for oral health, #946 (Reported) Entered as Reported by: ULIS CERDA on 01/24/192043 Last Action: Continued on 01/24/192156 by DAJUAN MADDEN MD Cholecalciferol (Vitamin D3) (Vitamin D3) 1,000 Unit Tablet, 2 TAB PO DAILY for supplement, #30 Ref 5 (Reported) Entered as Reported by: LUIS CERDA on 01/24/192043 Last Action: Continued on 01/24/192156 by DAJUAN MADDEN MD Clopidogrel Bisulfate (Clopidogrel) 75 Mg Tablet, 1 TAB PO DAILY for PVD, #90 Ref 1 (Reported) Entered as Reported by: LUIS CERDA on 01/24/192043 Last Action: Continued on 01/24/192156 by DAJUAN MADDEN MD Diazepam (Diazepam) 5 Mg Tablet, 5 MG PO QID for spasticity, (Reported) Entered as Reported by: LUIS CERDA on 01/24/192043 Last Action: Continued on 01/25/19828 by KAROLINA MACIEL Diclofenac Sodium (Voltaren) 100 Gm Gel..gram., 2 GM TP QID for pain, #100 Ref 2 (Reported) Entered as Reported by: LUIS CERDA on 01/24/192043 Last Action: Continued on 01/24/192156 by DAJUAN MADDEN MD Dimethyl Fumarate (Tecfidera) 240 Mg Capsule.dr, 240 MG PO BID for MS, (Reported) Entered as Reported by: LUIS CERDA on 01/24/192043 Last Action: Converted on 01/25/19828 by KAROLINA MACIEL Duloxetine Hcl (Cymbalta) 60 Mg Capsule.dr, 1 CAP PO DAILY for depression, #90 Ref 3 (Reported) Entered as Reported by: LUIS CERDA on 01/24/192043 Last Action: Converted on 01/25/19828 by KAROLINA MACIEL Gabapentin (Gabapentin) 600 Mg Tablet, 600 MG PO TID for NEUROGENIC PAIN, (R eported) Entered as Reported by: LUIS CERDA on 01/24/192043 Last Action: Converted on 01/25/19828 by KAROLINA MACIEL Hyoscyamine Sulfate (Levsin) 0.125 Mg Tablet, 1 TAB PO BID for spasms, #90 Ref 1 (Reported) Entered as Reported by: LUIS CERDA on 01/24/192043 Last Action: Converted on 01/25/19828 by KAROLINA MACIEL Insulin Glargine,Hum.rec.anlog (Lantus) 100 Unit/1 Ml Vial, 8 UNIT SQ QHS for DMT2, (Reported) Entered as Reported by: LUIS CERDA on 01/24/192043 Last Action: Continued on 01/24/192157 by DAJUAN MADDEN MD Lisinopril (Lisinopril) 20 Mg Tablet, 1 TAB PO DAILY for HTN, #30 Ref 5 (Reported) Entered as Reported by: LUIS CERDA on 01/24/192043 Last Action: Continued on 01/24/192157 by DAJUAN MADDEN MD Metformin Hcl (Metformin Hcl) 1,000 Mg Tablet, 1,000 MG PO BIDWMEALS for DMT2, (Reported) Entered as Reported by: LUIS CERDA on 01/24/192043 Last Action: Converted on 01/25/19828 by KAROLINA MACIEL Methenamine Hippurate (Methenamine Hippurate) 1 Gm Tablet, 1 GM PO BID for infection, (Reported) Entered as Reported by: LUIS CERDA on 01/24/192043 Last Action: Converted on 01/25/19828 by KAROLINA MACIEL Metoprolol Tartrate (Metoprolol Tartrate) 50 Mg Tablet, 1 TAB PO BID for HTN, #60 Ref 5 (Reported) Entered as Reported by: LUIS CERDA on 01/24/192043 Last Action: Continued on 01/24/192157 by DAJUAN MADDEN MD Mirabegron (Myrbetriq) 50 Mg Tab.er.24h, 50 MG PO DAILY for bladder spasms, (Reported) Entered as Reported by: LUIS CERDA on 01/24/192043 Last Action: Converted on 01/25/19828 by KAROLINA MACIEL Modafinil (Modafinil) 100 Mg Tablet, 100 MG PO QHS for sleep disorder, (Reported) Entered as Reported by: LUIS CERDA on 01/24/192043 Last Action: HELD on 01/25/19828 by KAROLINA MACIEL Ondansetron Hcl (Ondansetron Hcl) 4 Mg Tablet, 1 TAB PO PRN Q6HRS for indigestion, N/V, #10 Ref 1 (Reported) Entered as Reported by: LUIS CERDA on 01/24/192043 Last Action: Converted on 01/25/19828 by KAROLINA MACIEL Phentermine Hcl (Phentermine Hcl) 37.5 Mg Tablet, 1 TAB PO DAILY for MS- hypersomnia, #30 Ref 2 (Reported) Entered as Reported by: LUIS CERDA on 01/24/192043 Last Action: Converted on 01/25/19828 by KAROLINA MACIEL Propylthiouracil (Propylthiouracil) 50 Mg Tablet, 50 MG PO TID for thyroid agent, (Reported) Entered as Reported by: LUIS CERDA on 01/24/192043 Last Action: Continued on 01/24/192157 by DAJUAN MADDEN MD Tizanidine Hcl (Tizanidine Hcl) 4 Mg Tablet, 1 TAB PO TID for muscle spasm, #90 (Reported) Entered as Reported by: LUIS CERDA on 01/24/192043 Last Action: Continued on 01/24/192157 by DAJUAN MADDEN MD [Neomycin-PolymB ] , 180 ML INT CAT DAILY, (Reported) Entered as Reported by: LUIS CERDA on 01/24/192043 Last Action: New Order on 01/24/192043 by LUIS CERDA Scheduled PRN Acetaminophen (Tylenol) 325 Mg Tablet, 650 MG PO PRN Q4HRS PRN for MILD PAIN / TEMP, (Reported) Entered as Reported by: LUIS CERDA on 01/24/192043 Last Action: Continued on 01/24/192156 by DAJUAN MADDEN MD Albuterol Sulfate (Proair Hfa Inhaler) 8.5 Gm Hfa.aer.ad, 2 PUFF INH PRN Q4HRS PRN for SHORTNESS OF BREATH, Ref 0 (Reported) Entered as Reported by: LUIS CERDA on 01/24/192043 Last Action: Continued on 01/24/192156 by DAJUAN MADDEN MD Diazepam (Valium) 5 Mg Tablet, 5 MG PO PRN Q6HRS PRN for ANXIETY / AGITATION, (Reported) Entered as Reported by: LUIS CERDA on 01/24/192043 Last Action: Continued on 01/24/192156 by DAJUAN MADDEN MD Hydrocodone/Apap 10-325 ([place] 10-325 Tablet) 1 Each Tablet, 1 TAB PO PRN Q12HR PRN for PAIN, Ref 0 (Reported) Entered as Reported by: LUIS CERDA on 01/24/192043 Last Action: Continued on 01/24/192157 by DAJUAN MADDEN MD Hyoscyamine Sulfate (Levsin-Sl) 0.125 Mg Tab.subl, 0.125 MG SL PRN Q4HRS PRN for SECRETIONS, (Reported) Entered as Reported by: LUIS CERDA on 01/24/192043 Last Action: Converted on 01/25/19828 by KAROLINA MACIEL Magnesium Hydroxide (Milk Of Magnesia) 2,400 Mg/10 Ml Oral.susp, 2,400 MG PO PRN DAILY PRN for CONSTIPATION, (Reported) Entered as Reported by: LUIS CERDA on 01/24/192043 Last Action: Converted on 01/25/19828 by KAROLINA MACIEL Oxycodone/Apap 10-325 (Percocet 10-325 Mg Tablet ) 1 Each Tablet, 1 TAB PO PRN Q8HRS PRN for PAIN, #10 Ref 0 Prescribed by: KAROLINA MACIEL on 01/26/19 1211 Tramadol Hcl (Tramadol Hcl) 50 Mg Tablet, 50 MG PO PRN Q6HRS PRN for PAIN, (Reported) Entered as Reported by: LUIS CERDA on 01/24/192043 Last Action: Continued on 01/24/192156 by DAJUAN MADDEN MD Discontinued Medications Acetaminophen (Acetaminophen) 500 Mg Tablet, 1 TAB PO TID for pain, #60 Ref 1 (Reported) Entered as Reported by: LUIS CERDA on 01/24/192043 Last Action: Continued on 01/25/19828 by KAROLINA MACIEL Patient Instructions Patient Instructions > 30 min face to face KAROLINA MACIEL MD Jan 26, 2019 12:14
--- NOTE | 2019-01-26 14:39 | SNU/HH DC ---
DISCHARGE ORDERS DISCHARGE INFORMATION: DISCHARGE DATE: Jan 26, 2019 FINAL DIAGNOSIS Problems Medical Problems: (1) Bedbound Status: Chronic (2) DM2 (diabetes mellitus, type 2) Status: Chronic (3) Hemiparesis Status: Chronic (4) HTN (hypertension) Status: Chronic (5) Lactic acidosis Status: Acute (6) MS (multiple sclerosis) Status: Chronic (7) Urinary catheter complication Status: Acute CONDITION ON DISCHARGE: Stable CORRECTION: SNF STAY <30 DAYS: Yes POST DISCHARGE ORDERS: ACTIVITY ORDERS: Resume previous activity WEIGHT BEARING STATUS: As tolerated DIET AFTER DISCHARGE: Regular WOUND/INCISION CARE: No wound care needed FOLLOW-UP: PHYSICIAN FOLLOW-UP: urology at [facility] or [facility] TREATMENT/EQUIPMENT ORDERS: ADAPTIVE EQUIPMENT NEEDED: None Physical Therapy For: Other: (resume previous) Occupational Therapy For: Other: (resume previous) DISCHARGE MEDICATIONS: Home Meds Active Scripts Oxycodone/Apap 10-325 (PERCOCET 10-325 MG TABLET ) 1 Each Tablet, 1 TAB PO PRN Q8HRS PRN for PAIN, #10 TAB 0 Refills Prov:KAROLINA MACIEL MD 01/26/19 Cefdinir (CEFDINIR) 300 Mg Capsule, 1 CAP PO BID for uti for 7 Days, #14 CAP Prov:KAROLINA MAICEL MD 01/26/19 Reported Medications Ondansetron Hcl (ONDANSETRON HCL) 4 Mg Tablet, 1 TAB PO PRN Q6HRS for indigestion, N/V, #10 TAB 1 Refill 01/24/19 Tizanidine Hcl (TIZANIDINE HCL) 4 Mg Tablet, 1 TAB PO TID for muscle spasm, #90 TAB 01/24/19 Cholecalciferol (Vitamin D3) (VITAMIN D3) 1,000 Unit Tablet, 2 TAB PO DAILY for supplement, #30 TAB 5 Refills 01/24/19 Diazepam (VALIUM) 5 Mg Tablet, 5 MG PO PRN Q6HRS PRN for ANXIETY / AGITATION, TAB 01/24/19 Tramadol Hcl (TRAMADOL HCL) 50 Mg Tablet, 50 MG PO PRN Q6HRS PRN for PAIN, TAB 01/24/19 Dimethyl Fumarate (TECFIDERA) 240 Mg Capsule.dr, 240 MG PO BID for MS, CAP 01/24/19 Propylthiouracil (PROPYLTHIOURACIL) 50 Mg Tablet, 50 MG PO TID for thyroid agent, TAB 01/24/19 Albuterol Sulfate (PROAIR HFA INHALER) 8.5 Gm Hfa.aer.ad, 2 PUFF INH PRN Q4HRS PRN for SHORTNESS OF BREATH, INHALER 0 Refills 01/24/19 Clopidogrel Bisulfate (CLOPIDOGREL) 75 Mg Tablet, 1 TAB PO DAILY for PVD, #90 TAB 1 Refill 01/24/19 Phentermine Hcl (PHENTERMINE HCL) 37.5 Mg Tablet, 1 TAB PO DAILY for MS- hypersomnia, #30 TAB 2 Refills 01/24/19 Chlorhexidine Gluconate (PERIDEX) 15 Ml Mouthwash, 15 ML PO BID for oral health, #946 ML 01/24/19 Amlodipine Besylate (NORVASC) 10 Mg Tablet, 10 MG PO DAILY for HTN, TAB 01/24/19 Hydrocodone/Apap 10-325 (NORCO 10-325 TABLET) 1 Each Tablet, 1 TAB PO PRN Q12HR PRN for PAIN, TAB 0 Refills 01/24/19 [Neomycin-PolymB ] No Conflict Check, 180 ML INT CAT DAILY 01/24/19 Mirabegron (MYRBETRIQ) 50 Mg Tab.er.24h, 50 MG PO DAILY for bladder spasms, TAB.SR 01/24/19 Modafinil (MODAFINIL) 100 Mg Tablet, 100 MG PO QHS for sleep disorder, TAB 01/24/19 Magnesium Hydroxide (MILK OF MAGNESIA) 2,400 Mg/10 Ml Oral.susp, 2400 MG PO PRN DAILY PRN for CONSTIPATION, MISC 01/24/19 Methenamine Hippurate (METHENAMINE HIPPURATE) 1 Gm Tablet, 1 GM PO BID for infection, TAB 01/24/19 Metformin Hcl (METFORMIN HCL) 1,000 Mg Tablet, 1000 MG PO BIDWMEALS for DMT2, TAB 01/24/19 Metoprolol Tartrate (METOPROLOL TARTRATE) 50 Mg Tablet, 1 TAB PO BID for HTN, #60 TAB 5 Refills 01/24/19 Lisinopril (LISINOPRIL) 20 Mg Tablet, 1 TAB PO DAILY for HTN, #30 TAB 5 Refills 01/24/19 Insulin Glargine,Hum.rec.anlog (LANTUS) 100 Unit/1 Ml Vial, 8 UNIT SQ QHS for DMT2, VIAL 01/24/19 Hyoscyamine Sulfate (LEVSIN-SL) 0.125 Mg Tab.subl, 0.125 MG SL PRN Q4HRS PRN for SECRETIONS, TAB 01/24/19 Hyoscyamine Sulfate (LEVSIN) 0.125 Mg Tablet, 1 TAB PO BID for spasms, #90 TAB 1 Refill 01/24/19 Gabapentin (GABAPENTIN) 600 Mg Tablet, 600 MG PO TID for NEUROGENIC PAIN, TAB 01/24/19 Diclofenac Sodium (VOLTAREN) 100 Gm Gel..gram., 2 GM TP QID for pain, #100 GM 2 Refills 01/24/19 Diazepam (DIAZEPAM) 5 Mg Tablet, 5 MG PO QID for spasticity, TAB 01/24/19 Duloxetine Hcl (CYMBALTA) 60 Mg Capsule.dr, 1 CAP PO DAILY for depression, #90 CAP 3 Refills 01/24/19 Baclofen (BACLOFEN) 20 Mg Tablet, 20 MG PO QID for MUSCLE RELAXER, #30 TAB 0 Refills 01/24/19 Aspirin (ASPIRIN) 81 Mg Tab.chew, 1 TAB PO DAILY for ppx, #30 TAB 3 Refills 01/24/19 Ascorbic Acid (ASCORBIC ACID) 500 Mg Tablet, 500 MG PO DAILY for immune support, TAB 01/24/19 Acetaminophen (TYLENOL) 325 Mg Tablet, 650 MG PO PRN Q4HRS PRN for MILD PAIN / TEMP, TAB 01/24/19 Discontinued Reported Medications Acetaminophen (ACETAMINOPHEN) 500 Mg Tablet, 1 TAB PO TID for pain, #60 TAB 1 Refill 01/24/19 KAROLINA MACIEL MD Jan 26, 2019 14:39
[2019-01-26 14:57] VITALS: BP 128/70
--- NOTE | 2019-01-26 15:40 | NUR ---
SW following pt. Orders faxed to [facility] and SW arranged transportation via [facility] at 1800. Pt's , Serena, phone: [phone] aware of plans and agreeable. RN notified.
--- NOTE | 2019-01-26 19:12 | NUR ---
Pt left unit via EMS at 1907. Pt stable upon discharge.
--- NOTE | 2019-01-26 19:31 | NUR ---
This software writer called [facility] to give report at approx 1910. The person who answered stated that the nurse wasn't available at this time. This software writer left the telephone number to call back for report.
== END 2019-01-26 19:00 | disposition home or self-care (01) | DRG 699 ==
LOC: ER 15:12 → 5 SOUTH 17:40
PROVIDERS: ADMIT Internal Medicine; ATTEND Internal Medicine
DX: T83.038A Leakage of other urinary catheter, initial encounter (principal); N39.0 Urinary tract infection, site not specified; E87.2 Acidosis; G81.90 Hemiplegia, unspecified affecting unspecified side; J45.909 Unspecified asthma, uncomplicated; I10 Essential (primary) hypertension; G35 Multiple sclerosis; E11.9 Type 2 diabetes mellitus without complications; F32.9 Major depressive disorder, single episode, unspecified; E78.5 Hyperlipidemia, unspecified; N31.9 Neuromuscular dysfunction of bladder, unspecified; Y84.6 Urinary catheterization as the cause of abnormal reaction of the patient, or of later complication, without mention of misadventure at the time of the procedure; Z90.49 Acquired absence of other specified parts of digestive tract; Z98.52 Vasectomy status; Z88.1 Allergy status to other antibiotic agents; Z74.01 Bed confinement status; Z87.440 Personal history of urinary (tract) infections; Z88.8 Allergy status to other drugs, medicaments and biological substances; Y92.89 Other specified places as the place of occurrence of the external cause
CPT/HCPCS: 36415; 80053; 81001; 82962; 83605; 85025; 87071; 87075; 87086; 94640; J1815; J7030; J7613; 99285-25; G0378